=== PATIENT | female | born 1950 | race Caucasian/White ===

== ENCOUNTER 2022-07-31 21:38 | Inpatient (IN) | payer OTHER ==
[2022-07-31 21:44] VITALS: BMI 27.4
[2022-07-31 23:15] LABS: BASO % 0.5 % (0-2.0); EOS % 2.4 % (0-4.5); HEMATOCRIT 33.9 % (32.4-45.2); HEMOGLOBIN 11.4 GM/dL (10.7-15.3); LYMPH % 31.8 % (8-40); MCH 30.7 pg (25.7-33.7); MCHC 33.7 g/dl (32.0-36.0); MEAN PLT VOLUME 7.3 fl (7.5-11.1); MONO % 6.8 % (3.8-10.2); NEUT % 58.5 % (42.8-82.8); PLATELET COUNT 279 10^3/uL (134-434); RBC 3.72 M/mm3 (3.60-5.2); RDW 13.6 % (11.6-15.6)
[2022-07-31 23:20] LABS: INR 0.97 (0.83-1.09); PROTHROMBIN TIME (PATIENT) 11.2 SEC (9.7-13.0)
[2022-07-31 23:23] LABS: ACTIVATED PTT 28.9 SECONDS (25.2-36.5)
[2022-07-31 23:43] LABS: CALCIUM 9.3 mg/dL (8.5-10.1)
[2022-07-31 23:44] LABS: ALBUMIN 3.8 g/dl (3.4-5.0); BLOOD UREA NITROGEN 31.7 mg/dL (7-18); MAGNESIUM 2.2 mg/dL (1.8-2.4)
[2022-07-31 23:47] LABS: CREATININE 1.6 mg/dL (0.55-1.3)
[2022-07-31 23:49] LABS: BILIRUBIN,TOTAL 0.3 mg/dL (0.2-1); TOT PROT 7.7 g/dl (6.4-8.2)
[2022-07-31] MEDS ORDERED: morphine CARPU-JECT 4 MG/1 ML DISP.SYRIN IVPUSH ONE (23:57)
[2022-07-31] MEDS ORDERED: ONDANSETRON 4 MG/2 ML VIAL IVPUSH ONE (23:57)
[2022-08-01] MEDS ORDERED: morphine CARPU-JECT 4 MG/1 ML DISP.SYRIN IVPUSH ONE (00:02)
[2022-08-01] MEDS ORDERED: DEXTROSE 50%-WATER - 25 GM/50 ML VIAL IVPUSH ONE (01:56)
[2022-08-01] MEDS ORDERED: morphine SULFATE 4 MG/ML VIAL ONE (01:57)
[2022-08-01] MEDS ORDERED: ONDANSETRON 4 MG/2 ML VIAL ONE (01:58)
[2022-08-01] MEDS ORDERED: HEPARIN NA (PORCINE) 5,000 UNITS/ML 1ML VIAL IVPUSH ONE ×2 (02:09→03:45)
[2022-08-01] MEDS ORDERED: HEPARIN - 25,000 UNIT in SODIUM CHLORIDE 495 ML IV SCH (02:15)
[2022-08-01] MEDS ORDERED: DEXTROSE 50%-WATER 25 GM/50 ML DISP.SYRIN ONE (02:58)
[2022-08-01] MEDS ORDERED: HEPARIN NA (PORCINE) 5,000 UNITS/ML 1ML VIAL ONE ×2 (03:22→09:37)
[2022-08-01] MEDS ORDERED: ACETAMINOPHEN INJECTION 100 ML IVPB ONE (03:38)
[2022-08-01] MEDS ORDERED: SODIUM CHLORIDE 1,000 ML IV SCH (04:45)
[2022-08-01 06:34] LABS: HEMATOCRIT 33.3 % (32.4-45.2); HEMOGLOBIN 10.9 GM/dL (10.7-15.3); MCH 29.9 pg (25.7-33.7); MCHC 32.7 g/dl (32.0-36.0); MEAN CELL VOLUME 91.4 fl (80-96); MEAN PLT VOLUME 8.2 fl (7.5-11.1); PLATELET COUNT 283 10^3/uL (134-434); RBC 3.64 M/mm3 (3.60-5.2); RDW 13.2 % (11.6-15.6); WHITE BLOOD COUNT 8.7 K/mm3 (4.0-10.0)
[2022-08-01 07:37] LABS: BLOOD UREA NITROGEN 32.2 mg/dL (7-18); CALCIUM 8.7 mg/dL (8.5-10.1); CREATININE 1.6 mg/dL (0.55-1.3); MAGNESIUM 2.1 mg/dL (1.8-2.4); PHOSPHOROUS 4.5 mg/dL (2.5-4.9)
[2022-08-01] MEDS ORDERED: LIDOCAINE HCL 1%, 10 MG/ML (20ML VIAL) ONE (09:36)
[2022-08-01] MEDS ORDERED: GABAPENTIN 100 MG CAPSULE PO SCH (10:00)
[2022-08-01] MEDS ORDERED: FERROUS SO4 325 MG TABLET (FP) PO SCH (10:00)
[2022-08-01] MEDS ORDERED: amLODIPine BESYLATE 10 MG TABLET (FP) PO SCH (10:00)
[2022-08-01] MEDS ORDERED: SPIRONOLACTONE 25 MG TABLET PO SCH (10:00)
[2022-08-01] MEDS ORDERED: EZETIMIBE 10 MG TABLET (FP) PO SCH (10:00)
[2022-08-01] MEDS ORDERED: ISOSORBIDE MONONITRATE 30 MG TAB.SR.24H (FP) PO SCH (10:00)
[2022-08-01] MEDS ORDERED: LISINOPRIL 20 MG TABLET PO SCH (10:00)
[2022-08-01] MEDS ORDERED: HEPARIN NA (PORCINE) 5,000 UNITS/ML 1ML VIAL SQ ONE (10:24)
[2022-08-01] MEDS ORDERED: LIDOCAINE HCL 1%, 10 MG/ML (20ML VIAL) NR ONE (10:25)
[2022-08-01 15:15] VITALS: RESP 18
[2022-08-01] MEDS: FUROSEMIDE 20 MG TABLET (FP) PO SCH ×2 (15:36→22:01)
[2022-08-01] MEDS ORDERED: DEXTROSE 50%-WATER 25 GM/50 ML DISP.SYRIN IVPUSH PRN (20:19)
[2022-08-01] MEDS ORDERED: FAMOTIDINE 20 MG TABLET PO SCH (22:00)
[2022-08-01] MEDS ORDERED: ATORVASTATIN CA 80 MG TABLET (FP) PO SCH (22:00)
[2022-08-01] MEDS: INSULIN SLIDING SCALE (NOVOLOG) 1 VIAL SQ SCH (22:02)
[2022-08-01] MEDS ORDERED: ONDANSETRON 4 MG/2 ML VIAL IVPUSH ONE (23:56)
[2022-08-01] MEDS ORDERED: ACETAMINOPHEN 325 MG TABLET (FP) PO ONE (23:58)
[2022-08-02 06:44] VITALS: BP 141/61; PULSE 90; TEMP 99
[2022-08-02] MEDS: INSULIN SLIDING SCALE (NOVOLOG) 1 VIAL SQ SCH (07:03)
== END 2022-08-02 09:45 | disposition home or self-care (01) | DRG 301 ==
LOC: JER 21:38 → JERBED 22:16 → J5S 08-01 14:54
PROVIDERS: ADMIT Internal Medicine; ATTEND Surgery Vascular Surgery
DX: E11.51 Type 2 diabetes mellitus with diabetic peripheral angiopathy without gangrene (principal); E78.5 Hyperlipidemia, unspecified; E11.649 Type 2 diabetes mellitus with hypoglycemia without coma; I70.235 Atherosclerosis of native arteries of right leg with ulceration of other part of foot; Z85.3 Personal history of malignant neoplasm of breast; Z86.718 Personal history of other venous thrombosis and embolism; L97.519 Non-pressure chronic ulcer of other part of right foot with unspecified severity; L89.152 Pressure ulcer of sacral region, stage 2; Z88.0 Allergy status to penicillin; Z89.612 Acquired absence of left leg above knee
CPT/HCPCS: 36415; 71045-TC-FY; 73590-TC-RT-FY; 73630-TC-RT-FY; 73706-TC-RT; 80048; 80053; 82550; 82553; 82962; 83605; 83735; 84100; 84484; 85025; 85027; 85610; 85730; 86850; 86900; 86901; 93005; 93010; 99291; 99292; C9803-CS; J1644; Q9967; U0003; U0005

== ENCOUNTER 2022-08-02 16:49 | Inpatient (IN) | payer OTHER ==
[2022-08-02 16:55] VITALS: BMI 26.5
[2022-08-02] MEDS ORDERED: ePHEDrine SULFATE 50 MG/1 ML AMPULE ONE (18:06)
[2022-08-02] MEDS ORDERED: MIDAZOLAM HCL 2 MG/2 ML SINGLE DOSE VIAL ONE (18:07)
[2022-08-02] MEDS ORDERED: PROPOFOL 20 ML ONE (18:07)
[2022-08-02] MEDS ORDERED: ROCURONIUM BROMIDE 50 MG/5 ML SYRINGE ONE (18:07)
[2022-08-02] MEDS ORDERED: LIDOCAINE HCL 1%, 10 MG/ML (20ML VIAL) ONE (18:08)
[2022-08-02] MEDS ORDERED: HEPARIN NA (PORCINE) 5,000 UNITS/ML 1ML VIAL ONE ×2 (18:09→18:10)
[2022-08-02] MEDS ORDERED: PROTAMINE SULFATE 50 MG/5 ML VIAL ONE (18:10)
[2022-08-02] MEDS ORDERED: VANCOMYCIN 1,000 MG VIAL (RESTRICTED TO ID ONLY) ONE (18:11)
[2022-08-02] MEDS ORDERED: VANCOMYCIN 1,000 MG VIAL (RESTRICTED TO ID ONLY) IVPB ONE (18:30)
[2022-08-02] MEDS ORDERED: METOPROLOL TARTRATE 5 MG/5 ML VIAL ONE (18:43)
[2022-08-02] MEDS ORDERED: GENTAMICIN SO4 80 MG/2 ML VIAL ONE (19:14)
[2022-08-02] MEDS ORDERED: NEOSTIGMINE METHYLSULFATE 0.5 MG/ML - 10 ML MDV ONE (20:31)
[2022-08-02] MEDS ORDERED: POVIDONE-IODINE OINTMENT 10% - 28.4 GM TUBE TP ONE (20:40)
[2022-08-02] MEDS ORDERED: ONDANSETRON 4 MG/2 ML VIAL IVPUSH PRN ×2 (20:49→21:23)
[2022-08-02] MEDS ORDERED: LACTATED RINGERS SOLUTION 1,000 ML IV SCH (21:00)
[2022-08-02] MEDS ORDERED: ONDANSETRON 4 MG/2 ML VIAL ONE (21:17)
[2022-08-02] MEDS: LACTATED RINGERS SOLUTION 1,000 ML IV SCH (21:23)
[2022-08-02] MEDS ORDERED: HEPARIN INFUSION - 25,000 UNITS/500 ML INFUS.BAG IVPB SCH (21:23)
[2022-08-02] MEDS ORDERED: DOCUSATE SODIUM 100 MG CAPSULE (FP) PO PRN (21:23)
[2022-08-02] MEDS ORDERED: oxyCODONE HCL 5 MG TABLET PO PRN ×2 (21:23)
[2022-08-02] MEDS ORDERED: CHLORHEXIDINE GLUCONATE 4% CLEANSER FOR DECOLONIZATION TP SCH (22:00)
[2022-08-02] MEDS ORDERED: MUPIROCIN 2% TOPICAL OINTMENT FOR DECOLONIZATION NS SCH (22:00)
[2022-08-02 22:02] LABS: HEMATOCRIT 27.2 % (32.4-45.2); HEMOGLOBIN 8.8 GM/dL (10.7-15.3); MCHC 32.3 g/dl (32.0-36.0); MEAN CELL VOLUME 92.9 fl (80-96); MEAN PLT VOLUME 8.1 fl (7.5-11.1); PLATELET COUNT 242 10^3/uL (134-434); RBC 2.93 M/mm3 (3.60-5.2); RDW 13.6 % (11.6-15.6)
[2022-08-02] MEDS: ACETAMINOPHEN 1000 MG/100 ML BAG IVPB SCH (22:05)
[2022-08-03] MEDS: ACETAMINOPHEN 1000 MG/100 ML BAG IVPB SCH ×4 (04:06→21:30)
[2022-08-03 07:38] LABS: BASO % 0.5 % (0-2.0); EOS % 0.1 % (0-4.5); HEMATOCRIT 23.5 % (32.4-45.2); HEMOGLOBIN 8.1 GM/dL (10.7-15.3); LYMPH % 15.5 % (8-40); MCH 31.5 pg (25.7-33.7); MCHC 34.4 g/dl (32.0-36.0); MEAN CELL VOLUME 91.5 fl (80-96); MONO % 5.5 % (3.8-10.2); NEUT % 78.4 % (42.8-82.8); PLATELET COUNT 198 10^3/uL (134-434); RBC 2.57 M/mm3 (3.60-5.2); RDW 13.8 % (11.6-15.6); WHITE BLOOD COUNT 10.7 K/mm3 (4.0-10.0)
[2022-08-03 07:58] LABS: INR 1.04 (0.83-1.09)
[2022-08-03 08:00] LABS: ACTIVATED PTT 34.5 SECONDS (25.2-36.5)
[2022-08-03 08:13] LABS: CALCIUM 8.5 mg/dL (8.5-10.1)
[2022-08-03 08:14] LABS: BLOOD UREA NITROGEN 27.5 mg/dL (7-18)
[2022-08-03 08:15] LABS: CREATININE 1.4 mg/dL (0.55-1.3)
[2022-08-03 08:17] LABS: BILIRUBIN,TOTAL 0.4 mg/dL (0.2-1); PHOSPHOROUS 4.3 mg/dL (2.5-4.9); TOT PROT 5.7 g/dl (6.4-8.2)
[2022-08-03] MEDS: INSULIN SLIDING SCALE (NOVOLOG) 1 VIAL SQ SCH ×3 (08:19→17:25)
[2022-08-03 08:21] LABS: ALBUMIN 2.9 g/dl (3.4-5.0)
[2022-08-03] MEDS: LACTATED RINGERS SOLUTION 1,000 ML IV SCH ×2 (09:27→22:31)
[2022-08-03] MEDS: MUPIROCIN 2% TOPICAL OINTMENT FOR DECOLONIZATION NS SCH ×2 (09:30→22:31)
[2022-08-03] MEDS: FUROSEMIDE 20 MG TABLET (FP) PO SCH ×2 (09:30→22:31)
[2022-08-03] MEDS ORDERED: amLODIPine BESYLATE 10 MG TABLET (FP) PO SCH (10:00)
[2022-08-03] MEDS ORDERED: EZETIMIBE 10 MG TABLET (FP) PO SCH (10:00)
[2022-08-03] MEDS ORDERED: SPIRONOLACTONE 25 MG TABLET PO SCH (10:00)
[2022-08-03] MEDS ORDERED: GABAPENTIN 100 MG CAPSULE PO SCH (10:00)
[2022-08-03] MEDS ORDERED: LISINOPRIL 20 MG TABLET PO SCH (10:00)
[2022-08-03] MEDS ORDERED: NICOTINE 14 MG/24 HOURS TOPICAL PATCH TD SCH (10:00)
[2022-08-03] MEDS ORDERED: ISOSORBIDE MONONITRATE 30 MG TAB.SR.24H (FP) PO SCH (10:00)
[2022-08-03] MEDS ORDERED: FERROUS SO4 325 MG TABLET (FP) PO SCH (10:00)
[2022-08-03] MEDS ORDERED: CLOPIDOGREL BISULFATE 75 MG TABLET (FP) PO SCH (10:00)
[2022-08-03] MEDS: APIXABAN 5 MG TABLET PO SCH ×2 (12:10→22:31)
[2022-08-03] MEDS ORDERED: VANCOMYCIN/WATER FOR INJ (PEG) 1,000 MG/200 ML BAG IVPB ONE (18:30)
[2022-08-03] MEDS ORDERED: VANCOMYCIN 1,000 MG in DEXTROSE 5%-WATER - 250 ML IVPB ONE (18:30)
[2022-08-03] MEDS ORDERED: IBUPROFEN 800 MG/8 ML IJ IVPB ONE (19:03)
[2022-08-03] MEDS ORDERED: FAMOTIDINE 20 MG TABLET PO SCH (22:00)
[2022-08-03] MEDS ORDERED: ATORVASTATIN CA 80 MG TABLET (FP) PO SCH (22:00)
[2022-08-04] MEDS ORDERED: DOCUSATE SODIUM 100 MG CAPSULE (FP) PO PRN (08:33)
[2022-08-04] MEDS: EZETIMIBE 10 MG TABLET (FP) PO SCH (09:44)
[2022-08-04] MEDS: FUROSEMIDE 20 MG TABLET (FP) PO SCH ×2 (09:44→21:13)
[2022-08-04] MEDS: oxyCODONE HCL 5 MG TABLET PO PRN ×3 (09:44→19:17)
[2022-08-04] MEDS: ISOSORBIDE MONONITRATE 30 MG TAB.SR.24H (FP) PO SCH (09:44)
[2022-08-04] MEDS: amLODIPine BESYLATE 10 MG TABLET (FP) PO SCH (09:45)
[2022-08-04] MEDS: GABAPENTIN 100 MG CAPSULE PO SCH (09:45)
[2022-08-04] MEDS: NICOTINE 14 MG/24 HOURS TOPICAL PATCH TD SCH (09:45)
[2022-08-04] MEDS: APIXABAN 5 MG TABLET PO SCH ×2 (09:45→21:13)
[2022-08-04] MEDS: SPIRONOLACTONE 25 MG TABLET PO SCH (09:45)
[2022-08-04] MEDS: FERROUS SO4 325 MG TABLET (FP) PO SCH (09:45)
[2022-08-04] MEDS: CLOPIDOGREL BISULFATE 75 MG TABLET (FP) PO SCH (09:45)
[2022-08-04] MEDS: LACTATED RINGERS SOLUTION 1,000 ML IV SCH ×2 (09:46→23:47)
[2022-08-04] MEDS: LISINOPRIL 20 MG TABLET PO SCH (10:43)
[2022-08-04] MEDS ORDERED: INSULIN (NOVOLOG) ASPART 100 UNITS/ML 10ML VIAL ONE (11:42)
[2022-08-04] MEDS: INSULIN SLIDING SCALE (NOVOLOG) 1 VIAL SQ SCH ×2 (11:46→17:16)
[2022-08-04 12:22] LABS: BASO % 0.4 % (0-2.0); HEMATOCRIT 23.8 % (32.4-45.2); HEMOGLOBIN 7.9 GM/dL (10.7-15.3); LYMPH % 12.1 % (8-40); MCH 30.3 pg (25.7-33.7); MEAN CELL VOLUME 91.7 fl (80-96); MEAN PLT VOLUME 8.7 fl (7.5-11.1); MONO % 5.9 % (3.8-10.2); NEUT % 80.6 % (42.8-82.8); PLATELET COUNT 189 10^3/uL (134-434); RDW 13.6 % (11.6-15.6); WHITE BLOOD COUNT 10.3 K/mm3 (4.0-10.0)
[2022-08-04 12:44] LABS: ALBUMIN 2.8 g/dl (3.4-5.0); BLOOD UREA NITROGEN 23.7 mg/dL (7-18); CALCIUM 8.7 mg/dL (8.5-10.1)
[2022-08-04 12:46] LABS: CREATININE 1.3 mg/dL (0.55-1.3)
[2022-08-04 12:48] LABS: BILIRUBIN,TOTAL 0.3 mg/dL (0.2-1); TOT PROT 5.8 g/dl (6.4-8.2)
[2022-08-04] MEDS: ATORVASTATIN CA 80 MG TABLET (FP) PO SCH (21:13)
[2022-08-04] MEDS: FAMOTIDINE 10 MG TABLET PO SCH (21:13)
[2022-08-05] MEDS: oxyCODONE HCL 5 MG TABLET PO PRN ×4 (03:18→20:48)
[2022-08-05] MEDS: INSULIN SLIDING SCALE (NOVOLOG) 1 VIAL SQ SCH ×4 (05:09→16:42)
[2022-08-05] MEDS ORDERED: INSULIN (NOVOLOG) ASPART 100 UNITS/ML 10ML VIAL ONE (05:11)
[2022-08-05 09:29] LABS: BASO % 0.4 % (0-2.0); EOS % 1.3 % (0-4.5); HEMOGLOBIN 7.4 GM/dL (10.7-15.3); LYMPH % 14.1 % (8-40); MCH 30.4 pg (25.7-33.7); MCHC 33.7 g/dl (32.0-36.0); MEAN CELL VOLUME 90.4 fl (80-96); MEAN PLT VOLUME 8.3 fl (7.5-11.1); MONO % 6.9 % (3.8-10.2); NEUT % 77.3 % (42.8-82.8); PLATELET COUNT 194 10^3/uL (134-434); RBC 2.43 M/mm3 (3.60-5.2); RDW 13.4 % (11.6-15.6); WHITE BLOOD COUNT 9.9 K/mm3 (4.0-10.0)
[2022-08-05] MEDS: LACTATED RINGERS SOLUTION 1,000 ML IV SCH ×2 (09:37→17:56)
[2022-08-05] MEDS: GABAPENTIN 100 MG CAPSULE PO SCH (09:38)
[2022-08-05] MEDS: FUROSEMIDE 20 MG TABLET (FP) PO SCH ×2 (09:38→21:18)
[2022-08-05] MEDS: EZETIMIBE 10 MG TABLET (FP) PO SCH (09:38)
[2022-08-05] MEDS: ISOSORBIDE MONONITRATE 30 MG TAB.SR.24H (FP) PO SCH (09:38)
[2022-08-05] MEDS: CLOPIDOGREL BISULFATE 75 MG TABLET (FP) PO SCH (09:38)
[2022-08-05] MEDS: amLODIPine BESYLATE 10 MG TABLET (FP) PO SCH (09:38)
[2022-08-05] MEDS: FERROUS SO4 325 MG TABLET (FP) PO SCH (09:39)
[2022-08-05] MEDS: LISINOPRIL 20 MG TABLET PO SCH (09:39)
[2022-08-05] MEDS: APIXABAN 5 MG TABLET PO SCH ×2 (09:39→21:18)
[2022-08-05] MEDS: SPIRONOLACTONE 25 MG TABLET PO SCH (09:39)
[2022-08-05] MEDS: NICOTINE 14 MG/24 HOURS TOPICAL PATCH TD SCH (09:40)
[2022-08-05 09:45] LABS: CALCIUM 8.8 mg/dL (8.5-10.1)
[2022-08-05 09:46] LABS: BLOOD UREA NITROGEN 21.2 mg/dL (7-18)
[2022-08-05 09:49] LABS: CREATININE 1.3 mg/dL (0.55-1.3)
[2022-08-05] MEDS ORDERED: TRIMETHOBENZAMIDE HCL 200MG/2ML INJ IM PRN (18:04)
[2022-08-05] MEDS: FAMOTIDINE 10 MG TABLET PO SCH (21:18)
[2022-08-05] MEDS: MELATONIN 5 MG TABLETS PO SCH (21:19)
[2022-08-05] MEDS: ATORVASTATIN CA 80 MG TABLET (FP) PO SCH (21:19)
[2022-08-06] MEDS: oxyCODONE HCL 5 MG TABLET PO PRN ×2 (03:19→09:38)
[2022-08-06] MEDS: LACTATED RINGERS SOLUTION 1,000 ML IV SCH ×2 (05:32→11:01)
[2022-08-06] MEDS: INSULIN SLIDING SCALE (NOVOLOG) 1 VIAL SQ SCH ×3 (06:13→16:57)
[2022-08-06] MEDS ORDERED: INSULIN (NOVOLOG) ASPART 100 UNITS/ML 10ML VIAL ONE (06:24)
[2022-08-06] MEDS: ISOSORBIDE MONONITRATE 30 MG TAB.SR.24H (FP) PO SCH (09:39)
[2022-08-06] MEDS: SPIRONOLACTONE 25 MG TABLET PO SCH (09:39)
[2022-08-06] MEDS: EZETIMIBE 10 MG TABLET (FP) PO SCH (09:39)
[2022-08-06] MEDS: LISINOPRIL 20 MG TABLET PO SCH (09:40)
[2022-08-06] MEDS: FERROUS SO4 325 MG TABLET (FP) PO SCH (09:40)
[2022-08-06] MEDS: APIXABAN 5 MG TABLET PO SCH ×2 (09:40→22:13)
[2022-08-06] MEDS: GABAPENTIN 100 MG CAPSULE PO SCH (09:40)
[2022-08-06] MEDS: amLODIPine BESYLATE 10 MG TABLET (FP) PO SCH (09:40)
[2022-08-06] MEDS: FUROSEMIDE 20 MG TABLET (FP) PO SCH ×2 (09:40→22:12)
[2022-08-06] MEDS: NICOTINE 14 MG/24 HOURS TOPICAL PATCH TD SCH ×2 (09:40→11:00)
[2022-08-06] MEDS: CLOPIDOGREL BISULFATE 75 MG TABLET (FP) PO SCH (09:51)
[2022-08-06 10:42] LABS: BASO % 0.6 % (0-2.0); EOS % 2.4 % (0-4.5); HEMATOCRIT 23.2 % (32.4-45.2); HEMOGLOBIN 7.7 GM/dL (10.7-15.3); LYMPH % 15.4 % (8-40); MCH 30.2 pg (25.7-33.7); MEAN CELL VOLUME 91.7 fl (80-96); MEAN PLT VOLUME 8.7 fl (7.5-11.1); NEUT % 74.6 % (42.8-82.8); PLATELET COUNT 201 10^3/uL (134-434); RBC 2.53 M/mm3 (3.60-5.2); RDW 13.5 % (11.6-15.6); WHITE BLOOD COUNT 8.8 K/mm3 (4.0-10.0)
[2022-08-06 11:58] LABS: ALBUMIN 2.8 g/dl (3.4-5.0); BLOOD UREA NITROGEN 17.5 mg/dL (7-18); CALCIUM 9.2 mg/dL (8.5-10.1); MAGNESIUM 1.5 mg/dL (1.8-2.4)
[2022-08-06 12:01] LABS: PHOSPHOROUS 3.1 mg/dL (2.5-4.9)
[2022-08-06 12:04] LABS: CREATININE 1.2 mg/dL (0.55-1.3)
[2022-08-06 12:06] LABS: BILIRUBIN,TOTAL 0.4 mg/dL (0.2-1)
[2022-08-06] MEDS: MELATONIN 5 MG TABLETS PO SCH (22:12)
[2022-08-06] MEDS: ATORVASTATIN CA 80 MG TABLET (FP) PO SCH (22:13)
[2022-08-06] MEDS: FAMOTIDINE 10 MG TABLET PO SCH (22:13)
[2022-08-06 23:13] VITALS: RESP 18
[2022-08-07] MEDS: LACTATED RINGERS SOLUTION 1,000 ML IV SCH ×2 (06:09→10:22)
[2022-08-07] MEDS: INSULIN SLIDING SCALE (NOVOLOG) 1 VIAL SQ SCH ×3 (06:13→16:44)
[2022-08-07] MEDS: oxyCODONE HCL 5 MG TABLET PO PRN ×2 (06:57→10:27)
[2022-08-07] MEDS: LISINOPRIL 20 MG TABLET PO SCH (09:15)
[2022-08-07] MEDS: amLODIPine BESYLATE 10 MG TABLET (FP) PO SCH (09:15)
[2022-08-07] MEDS: FERROUS SO4 325 MG TABLET (FP) PO SCH (09:15)
[2022-08-07] MEDS: EZETIMIBE 10 MG TABLET (FP) PO SCH (09:15)
[2022-08-07] MEDS: ISOSORBIDE MONONITRATE 30 MG TAB.SR.24H (FP) PO SCH (09:15)
[2022-08-07] MEDS: CLOPIDOGREL BISULFATE 75 MG TABLET (FP) PO SCH (09:15)
[2022-08-07] MEDS: FUROSEMIDE 20 MG TABLET (FP) PO SCH (09:15)
[2022-08-07] MEDS: GABAPENTIN 100 MG CAPSULE PO SCH (09:15)
[2022-08-07] MEDS: SPIRONOLACTONE 25 MG TABLET PO SCH (09:15)
[2022-08-07 09:57] LABS: BASO % 0.3 % (0-2.0); EOS % 2.4 % (0-4.5); HEMATOCRIT 21.4 % (32.4-45.2); HEMOGLOBIN 7.5 GM/dL (10.7-15.3); LYMPH % 13.4 % (8-40); MCH 31.5 pg (25.7-33.7); MCHC 34.9 g/dl (32.0-36.0); MEAN CELL VOLUME 90.2 fl (80-96); MEAN PLT VOLUME 8.2 fl (7.5-11.1); MONO % 7.3 % (3.8-10.2); NEUT % 76.6 % (42.8-82.8); PLATELET COUNT 208 10^3/uL (134-434); RBC 2.37 M/mm3 (3.60-5.2); RDW 13.5 % (11.6-15.6); WHITE BLOOD COUNT 7.7 K/mm3 (4.0-10.0)
[2022-08-07] MEDS: NICOTINE 14 MG/24 HOURS TOPICAL PATCH TD SCH (10:12)
[2022-08-07 11:22] LABS: CALCIUM 8.5 mg/dL (8.5-10.1)
[2022-08-07 11:23] LABS: ALBUMIN 2.6 g/dl (3.4-5.0); BLOOD UREA NITROGEN 16.1 mg/dL (7-18); MAGNESIUM 1.2 mg/dL (1.8-2.4)
[2022-08-07 11:26] LABS: CREATININE 1.2 mg/dL (0.55-1.3); PHOSPHOROUS 3.1 mg/dL (2.5-4.9)
[2022-08-07 11:27] LABS: BILIRUBIN,TOTAL 0.4 mg/dL (0.2-1)
[2022-08-07] MEDS: APIXABAN 5 MG TABLET PO SCH (11:30)
[2022-08-07] MEDS ORDERED: INSULIN (NOVOLOG) ASPART 100 UNITS/ML 10ML VIAL ONE (11:43)
[2022-08-07 14:25] VITALS: BP 118/54; PULSE 99; TEMP 99.5
== END 2022-08-07 19:03 | disposition home health service (06) | DRG 253 ==
LOC: JER 16:49 → JERBED 18:38 → JICU 23:31 → J6S 08-04 06:28
PROVIDERS: ADMIT Internal Medicine; ATTEND Internal Medicine
PROC: 047P3ZZ Dilation of Right Anterior Tibial Artery, Percutaneous Approach (ICD-10-PCS; principal; 2022-08-02 19:00)
PROC: 04CM0ZZ Extirpation of Matter from Right Popliteal Artery, Open Approach (ICD-10-PCS; 2022-08-02 19:00)
DX: I97.89 Other postprocedural complications and disorders of the circulatory system, not elsewhere classified (principal); I13.0 Hypertensive heart and chronic kidney disease with heart failure and stage 1 through stage 4 chronic kidney disease, or unspecified chronic kidney disease; N18.9 Chronic kidney disease, unspecified; I73.9 Peripheral vascular disease, unspecified; E11.9 Type 2 diabetes mellitus without complications; Z89.512 Acquired absence of left leg below knee; E78.5 Hyperlipidemia, unspecified; Y83.9 Surgical procedure, unspecified as the cause of abnormal reaction of the patient, or of later complication, without mention of misadventure at the time of the procedure
CPT/HCPCS: 36415; 71046-TC-FY; 76000-TC-FY; 76775-TC; 80048; 80053; 82570; 82962; 83605; 83735; 83970; 84100; 84156; 84300; 85025; 85027; 85610; 85730; 86850; 86900; 86901; 93926-TC; 94010; 94760; 97116-GP; 97162-GP; 99285-25; C1757; C1769; J1644

== ENCOUNTER 2022-09-13 15:49 | Inpatient (IN) | payer OTHER ==
[2022-09-13] MEDS ORDERED: CEFEPIME HCL/D5W 2 GM/50 ML BAG IVPB ONE (17:35)
[2022-09-13] MEDS ORDERED: VANCOMYCIN 1 GM in D5W (PRE-DOCKED) 1,000 MG/250 ML IVPB ONE (17:35)
[2022-09-13] MEDS ORDERED: VANCOMYCIN/WATER FOR INJ (PEG) 1,000 MG/200 ML BAG IVPB ONE (18:14)
[2022-09-13] MEDS ORDERED: CEFEPIME 2 GM/100 ML BAG IVPB ONE (18:14)
[2022-09-13 18:22] LABS: BASO % 0.7 % (0-2.0); EOS % 0.5 % (0-4.5); HEMATOCRIT 29.4 % (32.4-45.2); HEMOGLOBIN 9.5 GM/dL (10.7-15.3); MCH 29.2 pg (25.7-33.7); MCHC 32.5 g/dl (32.0-36.0); MEAN PLT VOLUME 7.8 fl (7.5-11.1); MONO % 5.8 % (3.8-10.2); PLATELET COUNT 405 10^3/uL (134-434); RBC 3.26 M/mm3 (3.60-5.2); RDW 16.4 % (11.6-15.6); WHITE BLOOD COUNT 10.8 K/mm3 (4.0-10.0)
[2022-09-13 18:34] LABS: INR 1.08 (0.83-1.09); PROTHROMBIN TIME (PATIENT) 12.4 SEC (9.7-13.0)
[2022-09-13 18:36] LABS: ACTIVATED PTT 30.3 SECONDS (25.2-36.5)
[2022-09-13 18:49] LABS: CALCIUM 9.7 mg/dL (8.5-10.1)
[2022-09-13 18:50] LABS: BLOOD UREA NITROGEN 18.4 mg/dL (7-18)
[2022-09-13 18:53] LABS: CREATININE 1.4 mg/dL (0.55-1.3)
[2022-09-13 18:54] LABS: TOT PROT 7.2 g/dl (6.4-8.2)
[2022-09-13 18:55] LABS: BILIRUBIN,TOTAL 0.2 mg/dL (0.2-1)
[2022-09-14] MEDS ORDERED: ACETAMINOPHEN 1000 MG/100 ML BAG IVPB ONE (03:50)
[2022-09-14] MEDS ORDERED: ACETAMINOPHEN INJECTION 100 ML IVPB ONE (03:52)
[2022-09-14] MEDS ORDERED: VANCOMYCIN 1 GM in D5W (PRE-DOCKED) 1,000 MG/250 ML IVPB ONE (04:18)
[2022-09-14] MEDS ORDERED: VANCOMYCIN 750 MG in DEXTROSE 5%-WATER - 150 ML IVPB SCH (04:45)
[2022-09-14 08:21] VITALS: RESP 18
[2022-09-14] MEDS: INSULIN (LEVEMIR) 100 UNITS/ML UNITS SQ SCH ×2 (08:47→16:39)
[2022-09-14] MEDS: INSULIN SLIDING SCALE (NOVOLOG) 1 VIAL SQ SCH ×3 (08:48→16:37)
[2022-09-14] MEDS ORDERED: LISINOPRIL 20 MG TABLET ONE (09:41)
[2022-09-14] MEDS ORDERED: METOPROLOL TARTRATE 50 MG TABLET (FP) ONE (09:42)
[2022-09-14] MEDS ORDERED: SPIRONOLACTONE 25 MG TABLET ONE (09:42)
[2022-09-14] MEDS ORDERED: QUEtiapine FUMARATE 25 MG TABLET ONE (09:42)
[2022-09-14] MEDS ORDERED: amLODIPine BESYLATE 10 MG TABLET (FP) ONE (09:42)
[2022-09-14 09:48] LABS: URINE APPEARANCE CLEAR; URINE BILIRUBIN NEGATIVE (NEGATIVE); URINE COLOR YELLOW; URINE GLUCOSE (UA) 3+ (NEGATIVE)
[2022-09-14 09:49] LABS: EPI CELLS 19 /uL (0-25.1); HYALINE CASTS 1 /uL (0-3.1); PH,URINE 5.5 (5.0-8.0); URINE BACTERIA 2 /uL (0-1359); URINE KETONE NEGATIVE (NEGATIVE); URINE LEUK ESTERASE NEGATIVE (NEGATIVE); URINE NITRITE NEGATIVE (NEGATIVE); URINE PROTEIN 2+ (NEGATIVE); URINE RBC 13 /uL (0-23.9); URINE UROBILINOGEN 0.2 mg/dL (0.2-1.0); URINE WBC 33 /uL (0-25.8)
[2022-09-14] MEDS ORDERED: SPIRONOLACTONE 25 MG TABLET PO SCH (10:00)
[2022-09-14] MEDS ORDERED: EZETIMIBE 10 MG TABLET (FP) PO SCH (10:00)
[2022-09-14] MEDS ORDERED: QUEtiapine FUMARATE 25 MG TABLET PO SCH (10:00)
[2022-09-14] MEDS ORDERED: METOPROLOL TARTRATE 50 MG TABLET (FP) PO SCH (10:00)
[2022-09-14] MEDS ORDERED: LISINOPRIL 20 MG TABLET PO SCH (10:00)
[2022-09-14] MEDS ORDERED: amLODIPine BESYLATE 10 MG TABLET (FP) PO SCH (10:00)
[2022-09-14 10:06] LABS: YEAST FEW (NEGATIVE)
[2022-09-14 10:10] VITALS: BMI 25.3
[2022-09-14 11:26] LABS: BASO % 0.7 % (0-2.0); EOS % 1.4 % (0-4.5); HEMATOCRIT 25.5 % (32.4-45.2); HEMOGLOBIN 8.3 GM/dL (10.7-15.3); LYMPH % 24.4 % (8-40); MCH 29.4 pg (25.7-33.7); MCHC 32.7 g/dl (32.0-36.0); MEAN PLT VOLUME 7.7 fl (7.5-11.1); MONO % 8.2 % (3.8-10.2); NEUT % 65.3 % (42.8-82.8); PLATELET COUNT 333 10^3/uL (134-434); RBC 2.84 M/mm3 (3.60-5.2); RDW 16.2 % (11.6-15.6); WHITE BLOOD COUNT 6.8 K/mm3 (4.0-10.0)
[2022-09-14 11:43] LABS: ALBUMIN 2.5 g/dl (3.4-5.0); CALCIUM 9.4 mg/dL (8.5-10.1); MAGNESIUM 2.1 mg/dL (1.8-2.4)
[2022-09-14 11:46] LABS: CREATININE 1.4 mg/dL (0.55-1.3); PHOSPHOROUS 2.2 mg/dL (2.5-4.9)
[2022-09-14 11:48] LABS: BILIRUBIN,TOTAL 0.2 mg/dL (0.2-1); TOT PROT 6.3 g/dl (6.4-8.2)
[2022-09-14 16:49] VITALS: BP 118/54; PULSE 60; TEMP 98.8
[2022-09-14] MEDS ORDERED: VANCOMYCIN/WATER FOR INJ (PEG) 750 MG/150 ML BAG IVPB SCH (18:00)
[2022-09-14] MEDS ORDERED: ATORVASTATIN CA 80 MG TABLET (FP) PO SCH (22:00)
[2022-09-14] MEDS ORDERED: FAMOTIDINE 20 MG TABLET PO SCH (22:00)
== END 2022-09-14 19:06 | disposition home or self-care (01) | DRG 300 ==
LOC: JER 15:49 → JERBED 20:58
PROVIDERS: ADMIT Internal Medicine; ATTEND Internal Medicine
DX: E11.52 Type 2 diabetes mellitus with diabetic peripheral angiopathy with gangrene (principal); I96 Gangrene, not elsewhere classified; E78.5 Hyperlipidemia, unspecified; F17.210 Nicotine dependence, cigarettes, uncomplicated; D64.9 Anemia, unspecified; I11.0 Hypertensive heart disease with heart failure; I50.9 Heart failure, unspecified; M79.676 Pain in unspecified toe(s); Z89.612 Acquired absence of left leg above knee; Z85.3 Personal history of malignant neoplasm of breast; Z86.718 Personal history of other venous thrombosis and embolism
CPT/HCPCS: 36415; 75635-TC; 80053; 81003; 82962; 83735; 84100; 85025; 85610; 85730; 86850; 86900; 86901; 87040; 87070; 87205; 93005; 93010; 93971-TC; 99285-25; C9803-CS; Q9967; U0003; U0005

== ENCOUNTER 2022-10-01 12:24 | Inpatient (IN) | payer OTHER ==
[2022-10-01] MEDS ORDERED: CEFAZOLIN 1 GM in DEXTROSE 5%-WATER - 50 ML IVPB ONE (13:48)
[2022-10-01] MEDS ORDERED: ceFAZolin SODIUM 1 GM VIAL ONE (14:07)
[2022-10-01 14:20] LABS: BASO % 0.3 % (0-2.0); EOS % 4.2 % (0-4.5); HEMATOCRIT 27.9 % (32.4-45.2); MCH 29.4 pg (25.7-33.7); MCHC 32.2 g/dl (32.0-36.0); MEAN CELL VOLUME 91.4 fl (80-96); MEAN PLT VOLUME 7.9 fl (7.5-11.1); MONO % 3.9 % (3.8-10.2); NEUT % 77.6 % (42.8-82.8); PLATELET COUNT 269 10^3/uL (134-434); RBC 3.05 M/mm3 (3.60-5.2); RDW 17.6 % (11.6-15.6); WHITE BLOOD COUNT 9.1 K/mm3 (4.0-10.0)
[2022-10-01 14:27] LABS: INR 1.3 (0.83-1.09)
[2022-10-01 14:29] LABS: ACTIVATED PTT 31.6 SECONDS (25.2-36.5)
[2022-10-01 14:40] LABS: ALBUMIN 3.1 g/dl (3.4-5.0); CALCIUM 9.3 mg/dL (8.5-10.1)
[2022-10-01 14:41] LABS: BLOOD UREA NITROGEN 20.1 mg/dL (7-18)
[2022-10-01 14:43] LABS: CREATININE 1.2 mg/dL (0.55-1.3)
[2022-10-01 14:45] LABS: BILIRUBIN,TOTAL 0.3 mg/dL (0.2-1); TOT PROT 6.7 g/dl (6.4-8.2)
[2022-10-01 14:56] LABS: ERYTHROCYTE SEDIMENTATION RATE 105 mm/hr (0-30)
[2022-10-01] MEDS ORDERED: DOCUSATE SODIUM 100 MG CAPSULE (FP) PO PRN (15:31)
[2022-10-01] MEDS ORDERED: ACETAMINOPHEN 325 MG TABLET (FP) PO PRN (15:33)
[2022-10-01] MEDS ORDERED: QUEtiapine FUMARATE 25 MG TABLET ONE (21:16)
[2022-10-01] MEDS ORDERED: ATORVASTATIN CA 80 MG TABLET (FP) ONE (21:16)
[2022-10-01] MEDS ORDERED: HEPARIN NA (PORCINE) 5,000 UNITS/ML 1ML VIAL ONE (21:16)
[2022-10-01] MEDS ORDERED: METOPROLOL TARTRATE 50 MG TABLET (FP) ONE (21:16)
[2022-10-01] MEDS: METOPROLOL TARTRATE 50 MG TABLET (FP) PO SCH (21:51)
[2022-10-01] MEDS: ATORVASTATIN CA 80 MG TABLET (FP) PO SCH (21:51)
[2022-10-01] MEDS: QUEtiapine FUMARATE 25 MG TABLET PO SCH (21:51)
[2022-10-01] MEDS: INSULIN (LEVEMIR) 100 UNITS/ML UNITS SQ SCH (21:51)
[2022-10-01] MEDS: HEPARIN NA (PORCINE) 5,000 UNITS/ML 1ML VIAL SQ SCH (21:55)
[2022-10-02] MEDS ORDERED: MELATONIN 5 MG TABLETS PO ONE ×2 (00:07→19:41)
[2022-10-02 06:28] VITALS: BMI 22.6
[2022-10-02] MEDS ORDERED: POTASSIUM CHLORIDE ORAL LIQUID 20 MEQ/15 ML PO ONE (07:40)
[2022-10-02] MEDS: INSULIN (LEVEMIR) 100 UNITS/ML UNITS SQ SCH ×2 (08:35→22:12)
[2022-10-02] MEDS: SPIRONOLACTONE 25 MG TABLET PO SCH (09:43)
[2022-10-02] MEDS: METOPROLOL TARTRATE 50 MG TABLET (FP) PO SCH ×2 (09:43→22:10)
[2022-10-02] MEDS: CEFTRIAXONE 1 GM in DEXTROSE 5%-WATER - 50 ML IVPB SCH (09:43)
[2022-10-02] MEDS: amLODIPine BESYLATE 10 MG TABLET (FP) PO SCH (09:43)
[2022-10-02] MEDS: FAMOTIDINE 10 MG TABLET PO SCH (09:43)
[2022-10-02] MEDS: LISINOPRIL 20 MG TABLET PO SCH (09:43)
[2022-10-02] MEDS: EZETIMIBE 10 MG TABLET (FP) PO SCH (09:43)
[2022-10-02] MEDS: HEPARIN NA (PORCINE) 5,000 UNITS/ML 1ML VIAL SQ SCH (09:43)
[2022-10-02 10:17] LABS: BLOOD UREA NITROGEN 17.8 mg/dL (7-18); CALCIUM 9.3 mg/dL (8.5-10.1); MAGNESIUM 1.9 mg/dL (1.8-2.4)
[2022-10-02] MEDS: oxyCODONE HCL 5 MG TABLET PO PRN ×2 (14:45→22:10)
[2022-10-02] MEDS ORDERED: HEPARIN NA (PORCINE) 5,000 UNITS/ML 1ML VIAL IVPUSH PRN (16:35)
[2022-10-02] MEDS ORDERED: HEPARIN INFUSION - 25,000 UNITS/500 ML INFUS.BAG IVPB SCH (16:45)
[2022-10-02] MEDS ORDERED: ACETAMINOPHEN 1000 MG/100 ML BAG IVPB ONE (18:11)
[2022-10-02] MEDS ORDERED: POTASSIUM CHLORIDE TABS 20 MEQ TABLET.ER (FP) PO ONE (22:00)
[2022-10-02] MEDS: QUEtiapine FUMARATE 25 MG TABLET PO SCH (22:12)
[2022-10-02] MEDS: ATORVASTATIN CA 80 MG TABLET (FP) PO SCH (22:12)
[2022-10-03 09:30] LABS: HEMATOCRIT 26.9 % (32.4-45.2); HEMOGLOBIN 8.6 GM/dL (10.7-15.3); MCH 29.2 pg (25.7-33.7); MCHC 31.8 g/dl (32.0-36.0); MEAN CELL VOLUME 91.8 fl (80-96); MEAN PLT VOLUME 8.1 fl (7.5-11.1); PLATELET COUNT 219 10^3/uL (134-434); RBC 2.93 M/mm3 (3.60-5.2); RDW 17.2 % (11.6-15.6); WHITE BLOOD COUNT 5.7 K/mm3 (4.0-10.0)
[2022-10-03 09:35] LABS: INR 1.09 (0.83-1.09); PROTHROMBIN TIME (PATIENT) 12.6 SEC (9.7-13.0)
[2022-10-03 09:50] LABS: ALBUMIN 2.7 g/dl (3.4-5.0); BLOOD UREA NITROGEN 16.3 mg/dL (7-18); CALCIUM 9.6 mg/dL (8.5-10.1)
[2022-10-03 09:51] LABS: MAGNESIUM 2.1 mg/dL (1.8-2.4)
[2022-10-03 09:55] LABS: BILIRUBIN,TOTAL 0.6 mg/dL (0.2-1); TOT PROT 6.4 g/dl (6.4-8.2)
[2022-10-03] MEDS ORDERED: DEXTROSE 5%-NORMAL SALINE 1,000 ML IV SCH (10:15)
[2022-10-03] MEDS: LISINOPRIL 20 MG TABLET PO SCH (10:25)
[2022-10-03] MEDS: INSULIN (LEVEMIR) 100 UNITS/ML UNITS SQ SCH ×2 (10:25→21:10)
[2022-10-03] MEDS: METOPROLOL TARTRATE 50 MG TABLET (FP) PO SCH ×2 (10:26→21:10)
[2022-10-03] MEDS: amLODIPine BESYLATE 10 MG TABLET (FP) PO SCH (10:26)
[2022-10-03] MEDS: SPIRONOLACTONE 25 MG TABLET PO SCH (10:26)
[2022-10-03] MEDS: FAMOTIDINE 10 MG TABLET PO SCH (10:26)
[2022-10-03] MEDS: CEFTRIAXONE 1 GM in DEXTROSE 5%-WATER - 50 ML IVPB SCH (10:26)
[2022-10-03] MEDS: EZETIMIBE 10 MG TABLET (FP) PO SCH (10:26)
[2022-10-03] MEDS ORDERED: LIDOCAINE HCL 1%, 10 MG/ML (20ML VIAL) ONE (10:30)
[2022-10-03] MEDS ORDERED: BACITRACIN 15 GM TUBE TOPICAL OINTMENT ONE (10:31)
[2022-10-03] MEDS ORDERED: DEXAMETHASONE SOD PHOSPHATE 10 MG/1 ML VIAL ONE (10:31)
[2022-10-03] MEDS ORDERED: PROPOFOL 20 ML ONE (10:49)
[2022-10-03] MEDS ORDERED: FENTANYL CITRATE/PF 50 MCG/ML VIAL ONE (10:49)
[2022-10-03] MEDS ORDERED: MIDAZOLAM HCL 2 MG/2 ML SINGLE DOSE VIAL ONE (10:49)
[2022-10-03] MEDS ORDERED: LIDOCAINE HCL 1%, 10 MG/ML (20ML VIAL) NR ONE (11:18)
[2022-10-03] MEDS ORDERED: BUPIVACAINE HCL/PF 0.5% (5MG/ML) 10 ML VIAL NR ONE (11:18)
[2022-10-03] MEDS ORDERED: ONDANSETRON 4 MG/2 ML VIAL ONE (11:30)
[2022-10-03] MEDS ORDERED: GENTAMICIN SO4 80 MG/2 ML VIAL ONE (11:38)
[2022-10-03] MEDS ORDERED: GENTAMICIN SO4 80 MG/2 ML VIAL IVPB ONE (11:48)
[2022-10-03] MEDS ORDERED: ONDANSETRON 4 MG/2 ML VIAL IVPUSH PRN ×2 (12:01→12:12)
[2022-10-03] MEDS ORDERED: ACETAMINOPHEN 325 MG TABLET (FP) PO PRN (12:12)
[2022-10-03] MEDS ORDERED: DOCUSATE SODIUM 100 MG CAPSULE (FP) PO PRN (12:12)
[2022-10-03 13:37] VITALS: RESP 20
[2022-10-03] MEDS: oxyCODONE HCL 5 MG TABLET PO PRN (15:17)
[2022-10-03] MEDS: DEXTROSE 5%-NORMAL SALINE 1,000 ML IV SCH (15:19)
[2022-10-03] MEDS ORDERED: ACETAMINOPHEN 1000 MG/100 ML BAG IVPB ONE (18:33)
[2022-10-03] MEDS ORDERED: MELATONIN 5 MG TABLETS PO ONE (20:54)
[2022-10-03] MEDS ORDERED: QUEtiapine FUMARATE 25 MG TABLET PO SCH (22:00)
[2022-10-03] MEDS ORDERED: ATORVASTATIN CA 80 MG TABLET (FP) PO SCH (22:00)
[2022-10-04] MEDS: oxyCODONE HCL 5 MG TABLET PO PRN ×2 (04:56→14:11)
[2022-10-04] MEDS: INSULIN (LEVEMIR) 100 UNITS/ML UNITS SQ SCH (06:55)
[2022-10-04 09:06] LABS: HEMATOCRIT 26.4 % (32.4-45.2); HEMOGLOBIN 8.6 GM/dL (10.7-15.3); MCH 29.7 pg (25.7-33.7); MCHC 32.7 g/dl (32.0-36.0); MEAN CELL VOLUME 90.7 fl (80-96); MEAN PLT VOLUME 8.8 fl (7.5-11.1); PLATELET COUNT 220 10^3/uL (134-434); RBC 2.91 M/mm3 (3.60-5.2); RDW 16.8 % (11.6-15.6); WHITE BLOOD COUNT 7.3 K/mm3 (4.0-10.0)
[2022-10-04] MEDS ORDERED: amLODIPine BESYLATE 10 MG TABLET (FP) PO SCH (10:00)
[2022-10-04] MEDS ORDERED: CEFTRIAXONE 1 GM in DEXTROSE 5%-WATER - 50 ML IVPB SCH (10:00)
[2022-10-04] MEDS ORDERED: SPIRONOLACTONE 25 MG TABLET PO SCH (10:00)
[2022-10-04] MEDS ORDERED: FAMOTIDINE 10 MG TABLET PO SCH (10:00)
[2022-10-04] MEDS ORDERED: LISINOPRIL 20 MG TABLET PO SCH (10:00)
[2022-10-04] MEDS ORDERED: EZETIMIBE 10 MG TABLET (FP) PO SCH (10:00)
[2022-10-04] MEDS ORDERED: DOXYCYCLINE HYCLATE 100 MG CAPSULE PO SCH (10:00)
[2022-10-04] MEDS: METOPROLOL TARTRATE 50 MG TABLET (FP) PO SCH (11:27)
[2022-10-04] MEDS: DEXTROSE 5%-NORMAL SALINE 1,000 ML IV SCH (15:46)
[2022-10-04 15:49] VITALS: BP 149/65; PULSE 65; TEMP 99
[2022-10-05] MEDS ORDERED: MULTIVITAMINS THER W-MINERALS COMBO TABLET (FP) PO SCH (08:00)
== END 2022-10-04 15:54 | disposition home or self-care (01) | DRG 617 ==
LOC: JER 12:24 → JERBED 14:33 → J8W 22:03
PROVIDERS: ADMIT Family Medicine; ATTEND Family Medicine
PROC: 0Y6V0Z0 Detachment at Right 4th Toe, Complete, Open Approach (ICD-10-PCS; principal; 2022-10-03 11:00)
DX: E11.69 Type 2 diabetes mellitus with other specified complication (principal); E11.52 Type 2 diabetes mellitus with diabetic peripheral angiopathy with gangrene; I96 Gangrene, not elsewhere classified; M86.171 Other acute osteomyelitis, right ankle and foot; I10 Essential (primary) hypertension; E78.5 Hyperlipidemia, unspecified; E87.6 Hypokalemia; D64.9 Anemia, unspecified; R53.1 Weakness; E11.40 Type 2 diabetes mellitus with diabetic neuropathy, unspecified; Z85.3 Personal history of malignant neoplasm of breast; Z89.612 Acquired absence of left leg above knee; Z99.3 Dependence on wheelchair
CPT/HCPCS: 0241U-QW; 36415; 73630-TC-RT-FY; 73721-RT-TC; 80048; 80053; 82962; 83036; 83540; 83550; 83735; 85025; 85027; 85610; 85651; 85730; 86140; 86850; 86900; 86901; 87070; 87075; 87186; 87205; 88305-TC; 88311-TC; 93005; 93010; 94760; 99285-25; J1100; J1644

== ENCOUNTER 2023-05-03 15:46 | Emergency (ER) | payer OTHER ==
[2023-05-03 16:19] VITALS: BMI 22.1
[2023-05-03 16:26] LABS: MCH 31.4 pg (25.7-33.7); MCHC 33.7 g/dl (32.0-36.0); MEAN CELL VOLUME 93.5 fl (80-96); MEAN PLT VOLUME 7.8 fl (7.5-11.1); PLATELET COUNT 198.8 10^3/uL (134-434); RBC 2.09 10^6/uL (3.60-5.2); RDW 15.9 % (11.6-15.6); WHITE BLOOD COUNT 9.6 10^3/uL (4.0-10.8)
[2023-05-03 16:31] LABS: HEMATOCRIT 19.5 % (32.4-45.2); HEMOGLOBIN 6.6 G/dL (10.7-15.3)
[2023-05-03 16:37] LABS: INR 1.02 (0.83-1.09); PROTHROMBIN TIME (PATIENT) 11.8 SEC (9.7-13.0)
[2023-05-03 16:46] LABS: ALBUMIN 3.6 g/dl (3.4-5.0); BILIRUBIN,TOTAL 0.3 mg/dl (0.2-1); BLOOD UREA NITROGEN 42.9 mg/dl (7-18); CALCIUM 8.5 mg/dl (8.5-10.1); CREATININE 1.9 mg/dl (0.6-1.3); POTASSIUM 4.1 mmol/L (3.5-5.1); SGPT/ALT 15.5 U/L (7-52)
[2023-05-03] MEDS ORDERED: ASPIRIN 81 MG CHEWABLE TABLETS PO ONE (21:07)
[2023-05-03 22:09] LABS: PLATELET ESTIMATE ADEQUATE
[2023-05-03] MEDS ORDERED: ACETAMINOPHEN 325 MG TABLET (FP) PO PRN (22:33)
[2023-05-03] MEDS ORDERED: DOCUSATE SODIUM 100 MG CAPSULE (FP) PO PRN (22:33)
[2023-05-04] MEDS: INSULIN SLIDING SCALE (NOVOLOG) 1 VIAL SQ SCH ×3 (07:26→17:56)
[2023-05-04 08:56] LABS: BLOOD UREA NITROGEN 36.7 mg/dl (7-18); CALCIUM 8.6 mg/dl (8.5-10.1); CREATININE 1.6 mg/dl (0.6-1.3); MAGNESIUM 2.1 mg/dL (1.8-2.4); PHOSPHOROUS 3.39 (2.5-4.9); POTASSIUM 3.6 mmol/L (3.5-5.1)
[2023-05-04] MEDS ORDERED: EZETIMIBE 10 MG TABLET (FP) PO SCH (10:00)
[2023-05-04] MEDS ORDERED: amLODIPine BESYLATE 10 MG TABLET (FP) PO SCH (10:00)
[2023-05-04] MEDS ORDERED: FERROUS SO4 325 MG TABLET (FP) PO SCH (10:00)
[2023-05-04 11:58] LABS: HEMATOCRIT 27.6 % (32.4-45.2); HEMOGLOBIN 9.2 GM/dL (10.7-15.3); MCH 30.1 pg (25.7-33.7); MCHC 33.5 g/dl (32.0-36.0); PLATELET COUNT 162 10^3/uL (134-434); RBC 3.07 M/mm3 (3.60-5.2); RDW 15.8 % (11.6-15.6)
[2023-05-04 12:16] LABS: ANISOCYTOSIS 2+; MACROCYTOSIS 0; OVALOCYTE 1+
[2023-05-04 14:21] LABS: HEMATOCRIT 26.6 % (32.4-45.2); HEMOGLOBIN 9.1 G/dL (10.7-15.3); MCH 30.9 pg (25.7-33.7); MCHC 34.1 g/dl (32.0-36.0); MEAN CELL VOLUME 90.6 fl (80-96); MEAN PLT VOLUME 8.3 fl (7.5-11.1); PLATELET COUNT 180.7 10^3/uL (134-434); RBC 2.94 10^6/uL (3.60-5.2); RDW 16.7 % (11.6-15.6); WHITE BLOOD COUNT 7.9 10^3/uL (4.0-10.8)
[2023-05-04] MEDS ORDERED: PATIENT'S OWN MEDICATION (NON-FORMULARY) (Insulin Degludec [Tresiba Flextouch U-100] 100 U SQ SCH (15:00)
[2023-05-04 16:56] VITALS: BP 142/46; PULSE 61; RESP 16; TEMP 97.9
[2023-05-04] MEDS ORDERED: ATORVASTATIN CA 80 MG TABLET (FP) PO SCH (22:00)
[2023-05-04] MEDS ORDERED: FAMOTIDINE 20 MG TABLET PO SCH (22:00)
== END 2023-05-04 17:55 | disposition left against medical advice (07) ==
LOC: FER 15:46 → FM/S 21:16
PROVIDERS: ADMIT Internal Medicine; ATTEND Family Medicine
DX: D64.9 Anemia, unspecified (principal)
CPT/HCPCS: 36415; 36430; 71045-TC-FY; 74176-TC; 80048; 80053; 82962; 83605; 83690; 83735; 84100; 85027; 85610; 85730; 86850; 86900; 86901; 86922; 93005; 99285-25; G0378; P9058

== ENCOUNTER 2023-08-01 15:10 | Inpatient (IN) | payer OTHER ==
[2023-08-01 17:13] LABS: VENOUS BASE EXCESS -8.4 mmol/L (-2-2); VENOUS PCO2 44.3 mmHg (38-52); VENOUS PH 7.238 (7.310-7.410)
[2023-08-01 17:14] LABS: BASO % 0.3 % (0-2.0); EOS % 0.6 % (0-4.5); HEMATOCRIT 23.9 % (32.4-45.2); HEMOGLOBIN 7.7 GM/dL (10.7-15.3); LYMPH % 8.5 % (8-40); MCH 29.6 pg (25.7-33.7); MCHC 32.2 g/dl (32.0-36.0); MEAN CELL VOLUME 92.1 fl (80-96); MEAN PLT VOLUME 8.6 fl (7.5-11.1); MONO % 6.6 % (3.8-10.2); PLATELET COUNT 268 10^3/uL (134-434); RDW 14.1 % (11.6-15.6); WHITE BLOOD COUNT 11.4 K/mm3 (4.0-10.0)
[2023-08-01 17:20] LABS: INR 0.98 (0.83-1.09); PROTHROMBIN TIME (PATIENT) 11.4 SEC (9.7-13.0)
[2023-08-01 17:23] LABS: ACTIVATED PTT 21.8 SECONDS (25.2-36.5)
[2023-08-01] MEDS: LACTATED RINGERS SOLUTION 1,000 ML/1,000 ML INFUS.BAG IV SCH (17:47)
[2023-08-01 17:49] LABS: POTASSIUM 4.6 mmol/L (3.5-5.1)
[2023-08-01 17:51] LABS: CALCIUM 8.6 mg/dL (8.5-10.1)
[2023-08-01 17:52] LABS: ALBUMIN 3.1 g/dl (3.4-5.0); BLOOD UREA NITROGEN 60.9 mg/dL (7-18)
[2023-08-01 17:55] LABS: CREATININE 2.7 mg/dL (0.55-1.3)
[2023-08-01 17:57] LABS: BILIRUBIN,TOTAL 0.2 mg/dL (0.2-1); TOT PROT 6.7 g/dl (6.4-8.2)
[2023-08-01] MEDS ORDERED: DOCUSATE SODIUM 100 MG CAPSULE (FP) PO PRN (20:32)
[2023-08-01] MEDS ORDERED: ACETAMINOPHEN 325 MG TABLET (FP) PO PRN (20:32)
[2023-08-01] MEDS ORDERED: SODIUM CHLORIDE 1,000 ML IV SCH (20:45)
[2023-08-01] MEDS ORDERED: ACETAMINOPHEN 325 MG TABLET (FP) ONE (20:56)
[2023-08-01] MEDS ORDERED: INSULIN SLIDING SCALE (NOVOLOG) 1 VIAL SQ SCH (22:00)
[2023-08-01] MEDS ORDERED: morphine CARPU-JECT 2 MG/1 ML DISP.SYRIN IVPUSH ONE (23:04)
[2023-08-01] MEDS ORDERED: HEPARIN NA (PORCINE) 5,000 UNITS/ML 1ML VIAL IVPUSH PRN ×2 (23:32)
[2023-08-01] MEDS ORDERED: HEPARIN INFUSION - 25,000 UNITS/500 ML INFUS.BAG IVPB SCH (23:45)
[2023-08-01 23:51] LABS: EPI CELLS >36 /uL (0-25.1); HYALINE CASTS 4 /uL (0-3.1); PH,URINE 5.5 (5.0-8.0); URINE APPEARANCE CLEAR; URINE BACTERIA 51 /uL (0-1359); URINE BILIRUBIN NEGATIVE (NEGATIVE); URINE COLOR YELLOW; URINE GLUCOSE (UA) 3+ (NEGATIVE); URINE KETONE TRACE (NEGATIVE); URINE LEUK ESTERASE NEGATIVE (NEGATIVE); URINE NITRITE NEGATIVE (NEGATIVE); URINE PROTEIN 1+ (NEGATIVE); URINE RBC 4 /uL (0-23.9); URINE UROBILINOGEN 0.2 mg/dL (0.2-1.0)
[2023-08-02] MEDS ORDERED: HEPARIN INFUSION - 25,000 UNITS/500 ML INFUS.BAG IVPB ONE (02:12)
[2023-08-02 03:29] LABS: URINE WBC 63.4 /uL (0-25.8); YEAST FEW (NEGATIVE)
[2023-08-02] MEDS: INSULIN SLIDING SCALE (NOVOLOG) 1 VIAL SQ SCH ×4 (05:24→17:22)
[2023-08-02 09:03] LABS: BASO % 0.3 % (0-2.0); EOS % 1.9 % (0-4.5); HEMATOCRIT 23.7 % (32.4-45.2); HEMOGLOBIN 7.9 GM/dL (10.7-15.3); LYMPH % 12.8 % (8-40); MCH 30.9 pg (25.7-33.7); MCHC 33.4 g/dl (32.0-36.0); MEAN CELL VOLUME 92.8 fl (80-96); MEAN PLT VOLUME 8.8 fl (7.5-11.1); MONO % 7.6 % (3.8-10.2); NEUT % 77.4 % (42.8-82.8); PLATELET COUNT 244 10^3/uL (134-434); RBC 2.56 M/mm3 (3.60-5.2); RDW 14.1 % (11.6-15.6); WHITE BLOOD COUNT 9.9 K/mm3 (4.0-10.0)
[2023-08-02] MEDS ORDERED: LISINOPRIL 20 MG TABLET ONE (09:45)
[2023-08-02] MEDS ORDERED: amLODIPine BESYLATE 10 MG TABLET (FP) ONE (09:46)
[2023-08-02] MEDS ORDERED: ISOSORBIDE MONONITRATE 30 MG TAB.SR.24H (FP) PO ONE (09:46)
[2023-08-02] MEDS ORDERED: FERROUS SO4 325 MG TABLET (FP) ONE (09:46)
[2023-08-02] MEDS: FERROUS SO4 325 MG TABLET (FP) PO SCH (09:55)
[2023-08-02] MEDS: LISINOPRIL 20 MG TABLET PO SCH (09:55)
[2023-08-02] MEDS: amLODIPine BESYLATE 10 MG TABLET (FP) PO SCH (09:55)
[2023-08-02] MEDS: ISOSORBIDE MONONITRATE 30 MG TAB.SR.24H (FP) PO SCH (09:55)
[2023-08-02] MEDS: EZETIMIBE 10 MG TABLET (FP) PO SCH (09:58)
[2023-08-02 10:22] LABS: BLOOD UREA NITROGEN 62.5 mg/dL (7-18); CALCIUM 8.5 mg/dL (8.5-10.1); CREATININE 2.2 mg/dL (0.55-1.3); IRON SERUM 23 ug/dL (50-175); MAGNESIUM 2.5 mg/dL (1.8-2.4); PHOSPHOROUS 5.1 mg/dL (2.5-4.9); POTASSIUM 4.1 mmol/L (3.5-5.1); TOTAL IRON BINDING CAPACITY 317 ug/dL (250-450)
[2023-08-02] MEDS ORDERED: HEPARIN NA (PORCINE) 5,000 UNITS/ML 1ML VIAL IVPUSH PRN ×4 (10:48→22:32)
[2023-08-02] MEDS ORDERED: HEPARIN - 25,000 UNIT in SODIUM CHLORIDE 495 ML IV SCH ×2 (11:00→22:45)
[2023-08-02] MEDS ORDERED: ONDANSETRON 4 MG/2 ML VIAL ONE (12:52)
[2023-08-02] MEDS ORDERED: FAMOTIDINE 10 MG/ML VIAL IVPB ONE (12:53)
[2023-08-02] MEDS ORDERED: IRON SUCROSE INJECTION 200 MG in SODIUM CHLORIDE 90 ML IVPB ONE (14:51)
[2023-08-02] MEDS ORDERED: PANTOPRAZOLE SODIUM 40 MG VIAL ONE (16:12)
[2023-08-02] MEDS: PANTOPRAZOLE SODIUM 40 MG VIAL IVPUSH SCH (16:13)
[2023-08-02] MEDS: LACTATED RINGERS SOLUTION 1,000 ML/1,000 ML INFUS.BAG IV SCH (18:18)
[2023-08-02] MEDS: ATORVASTATIN CA 80 MG TABLET (FP) PO SCH (22:03)
[2023-08-03] MEDS ORDERED: HEPARIN SOD,PORK IN 0.45% NACL 25,000 UNITS/500 ML INFUS.BAG IVPB SCH (00:02)
[2023-08-03] MEDS: INSULIN SLIDING SCALE (NOVOLOG) 1 VIAL SQ SCH ×7 (01:26→21:00)
[2023-08-03 02:17] VITALS: BMI 23.4
[2023-08-03] MEDS: PANTOPRAZOLE SODIUM 40 MG VIAL IVPUSH SCH (09:20)
[2023-08-03] MEDS: FERROUS SO4 325 MG TABLET (FP) PO SCH (09:20)
[2023-08-03] MEDS: LISINOPRIL 20 MG TABLET PO SCH (09:20)
[2023-08-03] MEDS: EZETIMIBE 10 MG TABLET (FP) PO SCH (09:20)
[2023-08-03] MEDS: amLODIPine BESYLATE 10 MG TABLET (FP) PO SCH (09:20)
[2023-08-03] MEDS: ISOSORBIDE MONONITRATE 30 MG TAB.SR.24H (FP) PO SCH (09:20)
[2023-08-03] MEDS: ACETAMINOPHEN 325 MG TABLET (FP) PO PRN (09:24)
[2023-08-03 09:47] LABS: HEMATOCRIT 21.8 % (32.4-45.2); MCH 29.4 pg (25.7-33.7); MCHC 31.1 g/dl (32.0-36.0); MEAN CELL VOLUME 94.7 fl (80-96); MEAN PLT VOLUME 8.8 fl (7.5-11.1); PLATELET COUNT 307 10^3/uL (134-434); WHITE BLOOD COUNT 11.2 K/mm3 (4.0-10.0)
[2023-08-03 10:07] LABS: HEMOGLOBIN 6.8 GM/dL (10.7-15.3)
[2023-08-03 12:41] LABS: BILIRUBIN,TOTAL 0.2 mg/dL (0.2-1)
[2023-08-03 12:49] LABS: ALBUMIN 2.8 g/dl (3.4-5.0); BLOOD UREA NITROGEN 56.8 mg/dL (7-18); CALCIUM 8.6 mg/dL (8.5-10.1); POTASSIUM 4.1 mmol/L (3.5-5.1); TOT PROT 6.2 g/dl (6.4-8.2)
[2023-08-03] MEDS ORDERED: SODIUM CHLORIDE 0.45% 1,000 ML IV SCH (13:30)
[2023-08-03 18:39] VITALS: RESP 18
[2023-08-03] MEDS: ATORVASTATIN CA 80 MG TABLET (FP) PO SCH (21:41)
[2023-08-04] MEDS ORDERED: MELATONIN 5 MG TABLETS PO ONE (00:42)
[2023-08-04] MEDS: INSULIN SLIDING SCALE (NOVOLOG) 1 VIAL SQ SCH ×4 (01:21→11:46)
[2023-08-04 01:22] VITALS: TEMP 98.8
[2023-08-04 07:12] VITALS: BP 146/58; PULSE 76
[2023-08-04 07:15] LABS: HEMATOCRIT 30.8 % (32.4-45.2); HEMOGLOBIN 10.2 GM/dL (10.7-15.3); MCH 29.9 pg (25.7-33.7); MEAN CELL VOLUME 90.6 fl (80-96); MEAN PLT VOLUME 7.8 fl (7.5-11.1); PLATELET COUNT 281 10^3/uL (134-434); RDW 14.7 % (11.6-15.6); WHITE BLOOD COUNT 10.6 K/mm3 (4.0-10.0)
[2023-08-04 09:19] LABS: POTASSIUM 4.3 mmol/L (3.5-5.1)
[2023-08-04 09:27] LABS: ALBUMIN 2.6 g/dl (3.4-5.0)
[2023-08-04 09:28] LABS: BLOOD UREA NITROGEN 42.2 mg/dL (7-18); CALCIUM 8.8 mg/dL (8.5-10.1)
[2023-08-04 09:30] LABS: CREATININE 1.5 mg/dL (0.55-1.3)
[2023-08-04 09:32] LABS: BILIRUBIN,TOTAL 0.9 mg/dL (0.2-1)
[2023-08-04] MEDS: PANTOPRAZOLE SODIUM 40 MG VIAL IVPUSH SCH (10:13)
[2023-08-04] MEDS: EZETIMIBE 10 MG TABLET (FP) PO SCH (10:13)
[2023-08-04] MEDS: LISINOPRIL 20 MG TABLET PO SCH (10:14)
[2023-08-04] MEDS: amLODIPine BESYLATE 10 MG TABLET (FP) PO SCH (10:14)
[2023-08-04] MEDS: FERROUS SO4 325 MG TABLET (FP) PO SCH (10:14)
[2023-08-04] MEDS: ISOSORBIDE MONONITRATE 30 MG TAB.SR.24H (FP) PO SCH (10:14)
[2023-08-04] MEDS: ACETAMINOPHEN 325 MG TABLET (FP) PO PRN (13:50)
== END 2023-08-04 14:14 | disposition left against medical advice (07) | DRG 300 ==
LOC: JER 15:10 → JERBED 18:31 → J5S 08-02 18:33
PROVIDERS: ADMIT Internal Medicine; ATTEND Family Medicine
DX: E11.52 Type 2 diabetes mellitus with diabetic peripheral angiopathy with gangrene (principal); E87.1 Hypo-osmolality and hyponatremia; I13.0 Hypertensive heart and chronic kidney disease with heart failure and stage 1 through stage 4 chronic kidney disease, or unspecified chronic kidney disease; I96 Gangrene, not elsewhere classified; N17.9 Acute kidney failure, unspecified; E78.5 Hyperlipidemia, unspecified; E11.65 Type 2 diabetes mellitus with hyperglycemia; E86.0 Dehydration; M79.671 Pain in right foot; N18.9 Chronic kidney disease, unspecified; I50.9 Heart failure, unspecified; E11.22 Type 2 diabetes mellitus with diabetic chronic kidney disease; D50.9 Iron deficiency anemia, unspecified; E11.40 Type 2 diabetes mellitus with diabetic neuropathy, unspecified; Z85.3 Personal history of malignant neoplasm of breast; Z89.612 Acquired absence of left leg above knee; Z89.421 Acquired absence of other right toe(s); Z86.718 Personal history of other venous thrombosis and embolism
CPT/HCPCS: 0241U-QW; 36415; 36430; 71045-TC-FY; 80048; 80053; 81003; 82010; 82728; 82803; 82962; 83540; 83550; 83615; 83735; 84100; 84484; 85025; 85027; 85045; 85610; 85730; 86850; 86900; 86901; 87040; 87086; 93005; 93010; 99285-25; J1644; J1756; P9058

== ENCOUNTER 2023-08-07 04:26 | Inpatient (IN) | payer OTHER ==
[2023-08-07] MEDS ORDERED: HEPARIN NA (PORCINE) 5,000 UNITS/ML 1ML VIAL ONE (12:04)
[2023-08-07] MEDS ORDERED: LIDOCAINE HCL 1%, 10 MG/ML (20ML VIAL) ONE (12:05)
[2023-08-07] MEDS ORDERED: LIDOCAINE HCL 0.5%, 5 MG/ML (50mL SDVIAL) ONE (12:05)
[2023-08-07] MEDS ORDERED: LIDOCAINE HCL 1%, 10 MG/ML (20ML VIAL) INF ONE (12:44)
[2023-08-07] MEDS ORDERED: HEPARIN NA (PORCINE) 5,000 UNITS/ML 1ML VIAL IV ONE (12:45)
[2023-08-07] MEDS ORDERED: FENTANYL CITRATE/PF 50 MCG/ML VIAL ONE ×6 (12:50→15:44)
[2023-08-07] MEDS ORDERED: ETOMIDATE 20 MG/10 ML VIAL IVPUSH ONE (12:51)
[2023-08-07] MEDS ORDERED: LIDOCAINE HCL/PF 2% SDV 5ML VIAL ONE (12:51)
[2023-08-07] MEDS ORDERED: ROCURONIUM BROMIDE 50 MG/5 ML SYRINGE ONE ×2 (12:51→16:38)
[2023-08-07] MEDS ORDERED: MIDAZOLAM HCL 2 MG/2 ML SINGLE DOSE VIAL ONE (12:51)
[2023-08-07] MEDS ORDERED: PROPOFOL 20 ML ONE ×2 (13:39→15:40)
[2023-08-07] MEDS ORDERED: VANCOMYCIN 1,000 MG VIAL (RESTRICTED TO ID ONLY) ONE ×2 (13:43→17:08)
[2023-08-07] MEDS ORDERED: VANCOMYCIN 1,000 MG VIAL (RESTRICTED TO ID ONLY) IVPB ONE ×2 (13:45→17:15)
[2023-08-07] MEDS ORDERED: METOCLOPRAMIDE HCL INJECTION 10 MG/2 ML VIAL ONE (14:13)
[2023-08-07] MEDS ORDERED: ONDANSETRON 4 MG/2 ML VIAL ONE (14:13)
[2023-08-07] MEDS ORDERED: HYDROmorphone HCl 2 MG/ML VIAL ONE (16:37)
[2023-08-07] MEDS ORDERED: IOVERSOL 320 MG/ML ML IV ONE (16:42)
[2023-08-07] MEDS ORDERED: IOHEXOL 300 MG/ML INFUS..BTL IV ONE (16:42)
[2023-08-07] MEDS ORDERED: SEVOFLURANE 250 ML BTL ONE (16:44)
[2023-08-07] MEDS ORDERED: SUGAMMADEX SODIUM 200 MG/2 ML VIAL ONE (17:05)
[2023-08-07] MEDS ORDERED: SODIUM CHLORIDE 0.9% P/F 10 ML VIAL IJ ONE (17:10)
[2023-08-07] MEDS ORDERED: POVIDONE-IODINE OINTMENT 10% - 28.4 GM TUBE ONE (17:26)
[2023-08-07] MEDS: ACETAMINOPHEN 1000 MG/100 ML BAG IVPB SCH (17:40)
[2023-08-07] MEDS ORDERED: ONDANSETRON 4 MG/2 ML VIAL IVPUSH PRN ×2 (17:50→18:10)
[2023-08-07] MEDS ORDERED: morphine CARPU-JECT 4 MG/1 ML DISP.SYRIN IVPUSH PRN (17:56)
[2023-08-07] MEDS ORDERED: LACTATED RINGERS SOLUTION 1,000 ML IV SCH ×2 (18:00→18:10)
[2023-08-07 18:36] LABS: BASO % 0.3 % (0-2.0); EOS % 1.5 % (0-4.5); HEMATOCRIT 26.3 % (32.4-45.2); HEMOGLOBIN 8.7 GM/dL (10.7-15.3); LYMPH % 13.4 % (8-40); MCH 29.7 pg (25.7-33.7); MCHC 33.1 g/dl (32.0-36.0); MEAN CELL VOLUME 89.8 fl (80-96); MEAN PLT VOLUME 7.3 fl (7.5-11.1); MONO % 5.7 % (3.8-10.2); NEUT % 79.1 % (42.8-82.8); PLATELET COUNT 348 10^3/uL (134-434); RBC 2.93 M/mm3 (3.60-5.2); RDW 14.6 % (11.6-15.6); WHITE BLOOD COUNT 13.7 K/mm3 (4.0-10.0)
[2023-08-07 19:34] LABS: POTASSIUM 4.1 mmol/L (3.5-5.1)
[2023-08-07 19:35] LABS: CALCIUM 8.1 mg/dL (8.5-10.1)
[2023-08-07 19:36] LABS: BLOOD UREA NITROGEN 29.7 mg/dL (7-18)
[2023-08-07 19:39] LABS: CREATININE 1.4 mg/dL (0.55-1.3)
[2023-08-07] MEDS: SODIUM CHLORIDE 1,000 ML IV SCH (21:08)
[2023-08-07 21:13] LABS: POTASSIUM 4.2 mmol/L (3.5-5.1)
[2023-08-07 21:14] LABS: CALCIUM 8.6 mg/dL (8.5-10.1)
[2023-08-07 21:15] LABS: BLOOD UREA NITROGEN 27.7 mg/dL (7-18)
[2023-08-07 21:18] LABS: CREATININE 1.3 mg/dL (0.55-1.3)
[2023-08-07] MEDS ORDERED: MUPIROCIN 2% TOPICAL OINTMENT FOR DECOLONIZATION NS SCH (22:00)
[2023-08-07] MEDS ORDERED: CHLORHEXIDINE GLUCONATE 4% CLEANSER FOR DECOLONIZATION TP SCH (22:00)
[2023-08-07] MEDS: FAMOTIDINE 20 MG TABLET PO SCH (22:41)
[2023-08-07] MEDS: CHLORHEXIDINE GLUCONATE 4% CLEANSER FOR DECOLONIZATION TP SCH (22:41)
[2023-08-07] MEDS: MUPIROCIN 2% TOPICAL OINTMENT FOR DECOLONIZATION NS SCH (22:41)
[2023-08-07] MEDS: INSULIN SLIDING SCALE (NOVOLOG) 1 VIAL SQ SCH (22:47)
[2023-08-08] MEDS: ACETAMINOPHEN 1000 MG/100 ML BAG IVPB SCH ×3 (00:20→12:27)
[2023-08-08] MEDS: morphine SULFATE 4 MG/ML VIAL IVPUSH PRN ×4 (02:30→20:54)
[2023-08-08] MEDS: INSULIN SLIDING SCALE (NOVOLOG) 1 VIAL SQ SCH ×4 (06:57→23:30)
[2023-08-08 07:43] LABS: HEMATOCRIT 25.1 % (32.4-45.2); HEMOGLOBIN 8.2 GM/dL (10.7-15.3); MCH 30.3 pg (25.7-33.7); MCHC 32.7 g/dl (32.0-36.0); MEAN CELL VOLUME 92.8 fl (80-96); PLATELET COUNT 319 10^3/uL (134-434); RDW 14.7 % (11.6-15.6); WHITE BLOOD COUNT 11.2 K/mm3 (4.0-10.0)
[2023-08-08 07:48] LABS: POTASSIUM 4.8 mmol/L (3.5-5.1)
[2023-08-08 07:58] LABS: CALCIUM 8.5 mg/dL (8.5-10.1)
[2023-08-08 07:59] LABS: ALBUMIN 2.3 g/dl (3.4-5.0); BLOOD UREA NITROGEN 24.5 mg/dL (7-18)
[2023-08-08 08:02] LABS: CREATININE 1.3 mg/dL (0.55-1.3)
[2023-08-08 08:03] LABS: BILIRUBIN,TOTAL 0.7 mg/dL (0.2-1); TOT PROT 5.3 g/dl (6.4-8.2)
[2023-08-08] MEDS: FERROUS SO4 325 MG TABLET (FP) PO SCH (09:28)
[2023-08-08] MEDS: MUPIROCIN 2% TOPICAL OINTMENT FOR DECOLONIZATION NS SCH ×2 (09:28→22:00)
[2023-08-08] MEDS: amLODIPine BESYLATE 10 MG TABLET (FP) PO SCH (09:28)
[2023-08-08] MEDS ORDERED: HEPARIN NA (PORCINE) 5,000 UNITS/ML 1ML VIAL IVPUSH PRN ×2 (09:35)
[2023-08-08] MEDS ORDERED: ENOXAPARIN NA (PORCINE) 60 MG/0.6 ML DISP.SYRIN SQ SCH (10:00)
[2023-08-08] MEDS ORDERED: APIXABAN 2.5 MG TABLET PO SCH (10:00)
[2023-08-08] MEDS ORDERED: PATIENT'S OWN MEDICATION (NON-FORMULARY) (Dapagliflozin Propanediol 10 MG Tablet) PO SCH (10:00)
[2023-08-08] MEDS ORDERED: VANCOMYCIN/WATER FOR INJ (PEG) 1,000 MG/200 ML BAG IVPB SCH (10:00)
[2023-08-08] MEDS ORDERED: VANCOMYCIN 1,000 MG in DEXTROSE 5%-WATER - 250 ML IVPB SCH (10:00)
[2023-08-08] MEDS: ONDANSETRON 4 MG/2 ML VIAL IVPUSH PRN ×2 (10:56→17:54)
[2023-08-08] MEDS: HEPARIN - 25,000 UNIT in SODIUM CHLORIDE 495 ML IV SCH (11:29)
[2023-08-08] MEDS ORDERED: IRON SUCROSE INJECTION 200 MG in SODIUM CHLORIDE 90 ML IVPB ONE (12:00)
[2023-08-08] MEDS: DOXYCYCLINE HYCLATE 100 MG CAPSULE PO SCH (17:54)
[2023-08-08] MEDS ORDERED: NICOTINE 14 MG/24 HOURS TOPICAL PATCH TD SCH (20:45)
[2023-08-08] MEDS: SODIUM CHLORIDE 1,000 ML IV SCH (20:53)
[2023-08-08 20:55] LABS: BASO % 0.5 % (0-2.0); EOS % 2.2 % (0-4.5); HEMATOCRIT 32.5 % (32.4-45.2); HEMOGLOBIN 10.5 GM/dL (10.7-15.3); LYMPH % 7.5 % (8-40); MCHC 32.2 g/dl (32.0-36.0); MEAN CELL VOLUME 93.2 fl (80-96); MEAN PLT VOLUME 8.6 fl (7.5-11.1); MONO % 5.6 % (3.8-10.2); NEUT % 84.2 % (42.8-82.8); PLATELET COUNT 212 10^3/uL (134-434); RBC 3.49 M/mm3 (3.60-5.2); RDW 14.9 % (11.6-15.6)
[2023-08-08] MEDS ORDERED: ATORVASTATIN CA 80 MG TABLET (FP) PO SCH (22:00)
[2023-08-08] MEDS: CHLORHEXIDINE GLUCONATE 4% CLEANSER FOR DECOLONIZATION TP SCH (22:10)
[2023-08-08] MEDS: FAMOTIDINE 20 MG TABLET PO SCH (23:24)
[2023-08-09] MEDS: INSULIN SLIDING SCALE (NOVOLOG) 1 VIAL SQ SCH ×4 (06:29→22:01)
[2023-08-09 07:26] LABS: BASO % 0.6 % (0-2.0); EOS % 2.2 % (0-4.5); MCH 29.8 pg (25.7-33.7); MCHC 31.9 g/dl (32.0-36.0); MEAN CELL VOLUME 93.4 fl (80-96); MEAN PLT VOLUME 8.6 fl (7.5-11.1); MONO % 6.8 % (3.8-10.2); NEUT % 82.4 % (42.8-82.8); PLATELET COUNT 326 10^3/uL (134-434); RBC 2.67 M/mm3 (3.60-5.2); RDW 14.9 % (11.6-15.6); WHITE BLOOD COUNT 11.9 K/mm3 (4.0-10.0)
[2023-08-09] MEDS ORDERED: HEPARIN NA (PORCINE) 5,000 UNITS/ML 1ML VIAL ONE ×2 (07:27→10:57)
[2023-08-09 08:02] LABS: POTASSIUM 4.6 mmol/L (3.5-5.1)
[2023-08-09 08:14] LABS: BLOOD UREA NITROGEN 19.5 mg/dL (7-18); CALCIUM 8.2 mg/dL (8.5-10.1)
[2023-08-09 08:15] LABS: ALBUMIN 2.2 g/dl (3.4-5.0); MAGNESIUM 1.7 mg/dL (1.8-2.4)
[2023-08-09 08:17] LABS: CREATININE 1.2 mg/dL (0.55-1.3); PHOSPHOROUS 2.7 mg/dL (2.5-4.9)
[2023-08-09 08:18] LABS: BILIRUBIN,TOTAL 0.4 mg/dL (0.2-1); TOT PROT 5.5 g/dl (6.4-8.2)
[2023-08-09] MEDS ORDERED: GENTAMICIN SO4 80 MG/2 ML VIAL ONE (08:54)
[2023-08-09] MEDS ORDERED: VANCOMYCIN 1,000 MG VIAL (RESTRICTED TO ID ONLY) ONE (08:54)
[2023-08-09] MEDS ORDERED: ceFAZolin SODIUM 1 GM VIAL ONE (08:54)
[2023-08-09] MEDS ORDERED: SUCCINYLCHOLINE CHLORIDE 200 MG/10 ML SYRINGE ONE (09:15)
[2023-08-09] MEDS ORDERED: ROCURONIUM BROMIDE 50 MG/5 ML SYRINGE ONE (09:27)
[2023-08-09] MEDS ORDERED: NOREPINEPHRINE BITARTRATE 4 MG/4 ML ML IV ONE (09:27)
[2023-08-09] MEDS ORDERED: MIDAZOLAM HCL 2 MG/2 ML SINGLE DOSE VIAL ONE (09:35)
[2023-08-09] MEDS ORDERED: PROPOFOL 20 ML ONE (09:35)
[2023-08-09] MEDS ORDERED: FENTANYL CITRATE/PF 50 MCG/ML VIAL ONE ×3 (09:36→13:53)
[2023-08-09] MEDS ORDERED: HYDROmorphone HCl 2 MG/ML VIAL ONE (09:41)
[2023-08-09] MEDS: MUPIROCIN 2% TOPICAL OINTMENT FOR DECOLONIZATION NS SCH ×2 (09:47→21:52)
[2023-08-09] MEDS: FERROUS SO4 325 MG TABLET (FP) PO SCH (09:47)
[2023-08-09] MEDS: amLODIPine BESYLATE 10 MG TABLET (FP) PO SCH (09:48)
[2023-08-09] MEDS: DOXYCYCLINE HYCLATE 100 MG CAPSULE PO SCH ×2 (09:48→18:46)
[2023-08-09] MEDS ORDERED: BUPIVACAINE HCL/PF 0.5% (5MG/ML) 10 ML VIAL ONE (10:45)
[2023-08-09] MEDS ORDERED: VANCOMYCIN 1,000 MG VIAL (RESTRICTED TO ID ONLY) IVPB ONE (11:00)
[2023-08-09] MEDS: HEPARIN - 25,000 UNIT in SODIUM CHLORIDE 495 ML IV SCH ×2 (11:03→17:28)
[2023-08-09] MEDS ORDERED: POVIDONE-IODINE OINTMENT 10% - 28.4 GM TUBE ONE (11:58)
[2023-08-09] MEDS ORDERED: SUGAMMADEX SODIUM 200 MG/2 ML VIAL ONE (12:09)
[2023-08-09] MEDS ORDERED: LABETALOL HCL 20 MG/4 ML VIAL ONE (12:09)
[2023-08-09] MEDS ORDERED: ALBUTEROL SO4 HFA INHALER IH ONE (12:12)
[2023-08-09] MEDS ORDERED: POVIDONE-IODINE OINTMENT 10% - 28.4 GM TUBE TP ONE (12:24)
[2023-08-09] MEDS ORDERED: LACTATED RINGERS SOLUTION 1,000 ML IV SCH (13:15)
[2023-08-09] MEDS ORDERED: SODIUM CHLORIDE 1,000 ML IV SCH (13:22)
[2023-08-09] MEDS ORDERED: ONDANSETRON 4 MG/2 ML VIAL IVPUSH PRN (13:22)
[2023-08-09] MEDS ORDERED: HEPARIN NA (PORCINE) 5,000 UNITS/ML 1ML VIAL IVPUSH PRN ×2 (13:22)
[2023-08-09] MEDS ORDERED: ALBUTEROL SO4 0.083% IH SOL 2.5 MG/3 ML VIAL.NEB. NEB PRN (17:07)
[2023-08-09] MEDS ORDERED: ALBUTEROL SO4 2.5/IPRATROPIUM 0.5 INH SOL 3 ML VIAL.NEB. NEB ONE (17:11)
[2023-08-09] MEDS: NICOTINE 14 MG/24 HOURS TOPICAL PATCH TD SCH (18:46)
[2023-08-09] MEDS: methylPREDNISolone NA SUCC 40 MG/1 ML VIAL IVPUSH SCH (18:46)
[2023-08-09] MEDS: morphine SULFATE 4 MG/ML VIAL IVPUSH PRN ×2 (20:12→23:13)
[2023-08-09] MEDS: ALBUTEROL SO4 2.5/IPRATROPIUM 0.5 INH SOL 3 ML VIAL.NEB. NEB SCH (20:32)
[2023-08-09] MEDS: FUROSEMIDE INJECTION 100 MG in DEXTROSE 5%-WATER - 90 ML IVPB SCH (20:45)
[2023-08-09] MEDS: FAMOTIDINE 20 MG TABLET PO SCH (21:52)
[2023-08-09] MEDS: CHLORHEXIDINE GLUCONATE 4% CLEANSER FOR DECOLONIZATION TP SCH (21:52)
[2023-08-09] MEDS: ATORVASTATIN CA 80 MG TABLET (FP) PO SCH (21:52)
[2023-08-09] MEDS: MELATONIN 5 MG TABLETS PO PRN (21:52)
[2023-08-09] MEDS ORDERED: INSULIN (NOVOLOG) ASPART 100 UNITS/ML 10ML VIAL ONE (22:00)
[2023-08-10] MEDS: morphine SULFATE 4 MG/ML VIAL IVPUSH PRN ×2 (02:28→06:20)
[2023-08-10] MEDS: FUROSEMIDE INJECTION 100 MG in DEXTROSE 5%-WATER - 90 ML IVPB SCH ×2 (06:44→17:19)
[2023-08-10] MEDS: methylPREDNISolone NA SUCC 40 MG/1 ML VIAL IVPUSH SCH ×2 (06:45→17:27)
[2023-08-10] MEDS: INSULIN SLIDING SCALE (NOVOLOG) 1 VIAL SQ SCH ×4 (06:50→21:46)
[2023-08-10 07:28] LABS: HEMATOCRIT 33.6 % (32.4-45.2); HEMOGLOBIN 10.8 GM/dL (10.7-15.3); MCH 29.3 pg (25.7-33.7); MEAN CELL VOLUME 91.5 fl (80-96); MEAN PLT VOLUME 8.6 fl (7.5-11.1); PLATELET COUNT 336 10^3/uL (134-434); RBC 3.68 M/mm3 (3.60-5.2); RDW 15.3 % (11.6-15.6); WHITE BLOOD COUNT 23.1 K/mm3 (4.0-10.0)
[2023-08-10 07:45] LABS: POTASSIUM 4.7 mmol/L (3.5-5.1)
[2023-08-10 07:47] LABS: BLOOD UREA NITROGEN 28.8 mg/dL (7-18); CALCIUM 8.2 mg/dL (8.5-10.1); MAGNESIUM 1.5 mg/dL (1.8-2.4)
[2023-08-10 07:50] LABS: PHOSPHOROUS 2.9 mg/dL (2.5-4.9)
[2023-08-10 07:51] LABS: CREATININE 1.4 mg/dL (0.55-1.3)
[2023-08-10 07:52] LABS: BILIRUBIN,TOTAL 0.6 mg/dL (0.2-1); TOT PROT 5.5 g/dl (6.4-8.2)
[2023-08-10] MEDS: ALBUTEROL SO4 2.5/IPRATROPIUM 0.5 INH SOL 3 ML VIAL.NEB. NEB SCH ×3 (07:55→20:10)
[2023-08-10] MEDS: DOXYCYCLINE HYCLATE 100 MG CAPSULE PO SCH ×2 (09:09→17:29)
[2023-08-10] MEDS: MUPIROCIN 2% TOPICAL OINTMENT FOR DECOLONIZATION NS SCH ×2 (09:09→21:46)
[2023-08-10] MEDS: FERROUS SO4 325 MG TABLET (FP) PO SCH (09:09)
[2023-08-10] MEDS ORDERED: amLODIPine BESYLATE 10 MG TABLET (FP) PO SCH (10:00)
[2023-08-10 10:12] LABS: ANISOCYTOSIS 0; HELMET CELLS 0; HOWELL-JOLLY BODIES 0; MACROCYTOSIS 0; OVALOCYTE 0; ROULEAU 0; SICKELED CELLS 0; TARGET CELLS 0; TEAR DROP CELLS 0; TOXIC GRANULATION 0
[2023-08-10] MEDS ORDERED: INSULIN (NOVOLOG) ASPART 100 UNITS/ML 10ML VIAL ONE ×2 (11:31→18:10)
[2023-08-10] MEDS ORDERED: FUROSEMIDE 40 MG/4 ML INJECTABLE VIAL ONE (16:06)
[2023-08-10] MEDS: HEPARIN - 25,000 UNIT in SODIUM CHLORIDE 495 ML IV SCH (16:32)
[2023-08-10] MEDS: HYDROmorphone HCl 2 MG/ML VIAL IVPUSH PRN ×2 (17:27→21:11)
[2023-08-10] MEDS: NICOTINE 14 MG/24 HOURS TOPICAL PATCH TD SCH (17:50)
[2023-08-10] MEDS: ATORVASTATIN CA 80 MG TABLET (FP) PO SCH (21:13)
[2023-08-10] MEDS: CHLORHEXIDINE GLUCONATE 4% CLEANSER FOR DECOLONIZATION TP SCH (21:14)
[2023-08-10] MEDS: FAMOTIDINE 20 MG TABLET PO SCH (21:14)
[2023-08-10] MEDS: MELATONIN 5 MG TABLETS PO PRN (21:15)
[2023-08-11] MEDS: FUROSEMIDE INJECTION 100 MG in DEXTROSE 5%-WATER - 90 ML IVPB SCH ×2 (02:28→12:00)
[2023-08-11] MEDS: methylPREDNISolone NA SUCC 40 MG/1 ML VIAL IVPUSH SCH (05:04)
[2023-08-11] MEDS: INSULIN SLIDING SCALE (NOVOLOG) 1 VIAL SQ SCH ×4 (06:18→21:35)
[2023-08-11 07:25] LABS: HEMATOCRIT 33.1 % (32.4-45.2); HEMOGLOBIN 10.8 GM/dL (10.7-15.3); MCH 29.8 pg (25.7-33.7); MCHC 32.7 g/dl (32.0-36.0); MEAN CELL VOLUME 91.1 fl (80-96); MEAN PLT VOLUME 8.6 fl (7.5-11.1); PLATELET COUNT 356 10^3/uL (134-434); RBC 3.63 M/mm3 (3.60-5.2); WHITE BLOOD COUNT 19.4 K/mm3 (4.0-10.0)
[2023-08-11 07:31] LABS: CHLORIDE 102 mmol/L (98-107); POTASSIUM 4.6 mmol/L (3.5-5.1); SODIUM 133 mmol/L (136-145)
[2023-08-11 07:34] LABS: ALBUMIN 2.2 g/dl (3.4-5.0); ANION GAP 9 mmol/L (4-13); BLOOD UREA NITROGEN 39.5 mg/dL (7-18); CALCIUM 9.3 mg/dL (8.5-10.1); CO2 22 mmol/L (21-32)
[2023-08-11 07:37] LABS: CREATININE 1.7 mg/dL (0.55-1.3); SGOT/AST 22 U/L (15-37); SGPT/ALT 20 U/L (13-61)
[2023-08-11 07:39] LABS: BILIRUBIN,TOTAL 0.4 mg/dL (0.2-1); TOT PROT 6.1 g/dl (6.4-8.2)
[2023-08-11 07:40] LABS: ALK PHOS 90 U/L (45-117)
[2023-08-11 07:43] LABS: GLUCOSE,RANDOM 413 mg/dL (74-106)
[2023-08-11] MEDS: HEPARIN NA (PORCINE) 5,000 UNITS/ML 1ML VIAL IVPUSH PRN (08:15)
[2023-08-11] MEDS: ALBUTEROL SO4 2.5/IPRATROPIUM 0.5 INH SOL 3 ML VIAL.NEB. NEB SCH ×3 (08:34→20:30)
[2023-08-11] MEDS: NIFEdipine E.R 60 MG TABLET PO SCH (09:19)
[2023-08-11] MEDS: DOXYCYCLINE HYCLATE 100 MG CAPSULE PO SCH ×2 (09:19→17:13)
[2023-08-11] MEDS: FERROUS SO4 325 MG TABLET (FP) PO SCH (09:19)
[2023-08-11] MEDS: MUPIROCIN 2% TOPICAL OINTMENT FOR DECOLONIZATION NS SCH ×2 (09:20→21:23)
[2023-08-11] MEDS: HYDROmorphone HCl 2 MG/ML VIAL IVPUSH PRN ×2 (11:01→17:27)
[2023-08-11 11:11] LABS: ANISOCYTOSIS 2+; MACROCYTOSIS 0
[2023-08-11] MEDS ORDERED: INSULIN (NOVOLOG) ASPART 100 UNITS/ML 10ML VIAL ONE ×2 (12:00→17:29)
[2023-08-11] MEDS: HEPARIN - 25,000 UNIT in SODIUM CHLORIDE 495 ML IV SCH (17:27)
[2023-08-11] MEDS: CHLORHEXIDINE GLUCONATE 4% CLEANSER FOR DECOLONIZATION TP SCH (21:23)
[2023-08-11] MEDS: ATORVASTATIN CA 80 MG TABLET (FP) PO SCH (21:35)
[2023-08-11] MEDS: FAMOTIDINE 20 MG TABLET PO SCH (21:35)
[2023-08-12] MEDS: HYDROmorphone HCl 2 MG/ML VIAL IVPUSH PRN ×4 (00:01→21:56)
[2023-08-12] MEDS: HEPARIN NA (PORCINE) 5,000 UNITS/ML 1ML VIAL IVPUSH PRN (00:02)
[2023-08-12] MEDS: FUROSEMIDE INJECTION 100 MG in DEXTROSE 5%-WATER - 90 ML IVPB SCH ×2 (00:11→11:43)
[2023-08-12] MEDS: INSULIN SLIDING SCALE (NOVOLOG) 1 VIAL SQ SCH ×4 (06:39→22:10)
[2023-08-12] MEDS: ALBUTEROL SO4 2.5/IPRATROPIUM 0.5 INH SOL 3 ML VIAL.NEB. NEB SCH ×3 (07:35→20:10)
[2023-08-12 08:04] LABS: BASO % 0.2 % (0-2.0); HEMATOCRIT 32.6 % (32.4-45.2); HEMOGLOBIN 10.5 GM/dL (10.7-15.3); LYMPH % 5.3 % (8-40); MCH 29.5 pg (25.7-33.7); MCHC 32.2 g/dl (32.0-36.0); MEAN CELL VOLUME 91.5 fl (80-96); MEAN PLT VOLUME 8.6 fl (7.5-11.1); MONO % 6.4 % (3.8-10.2); NEUT % 88.1 % (42.8-82.8); PLATELET COUNT 392 10^3/uL (134-434); POTASSIUM 3.9 mmol/L (3.5-5.1); RBC 3.56 M/mm3 (3.60-5.2); RDW 14.8 % (11.6-15.6); WHITE BLOOD COUNT 19.6 K/mm3 (4.0-10.0)
[2023-08-12 08:07] LABS: BLOOD UREA NITROGEN 52.5 mg/dL (7-18); CALCIUM 8.9 mg/dL (8.5-10.1)
[2023-08-12 08:08] LABS: ALBUMIN 2.2 g/dl (3.4-5.0)
[2023-08-12 08:10] LABS: PHOSPHOROUS 3.5 mg/dL (2.5-4.9)
[2023-08-12 08:11] LABS: CREATININE 1.8 mg/dL (0.55-1.3); MAGNESIUM 1.8 mg/dL (1.8-2.4)
[2023-08-12 08:12] LABS: BILIRUBIN,TOTAL 0.5 mg/dL (0.2-1); TOT PROT 5.9 g/dl (6.4-8.2)
[2023-08-12] MEDS: NIFEdipine E.R 60 MG TABLET PO SCH (11:25)
[2023-08-12] MEDS: FERROUS SO4 325 MG TABLET (FP) PO SCH (11:27)
[2023-08-12] MEDS: DOXYCYCLINE HYCLATE 100 MG CAPSULE PO SCH ×2 (11:29→17:53)
[2023-08-12] MEDS: INSULIN (NOVOLOG) ASPART 100 UNITS/ML 10ML VIAL SQ SCH ×2 (12:26→20:01)
[2023-08-12] MEDS: MUPIROCIN 2% TOPICAL OINTMENT FOR DECOLONIZATION NS SCH ×2 (12:27→21:52)
[2023-08-12 14:08] VITALS: BMI 24.5
[2023-08-12] MEDS: HEPARIN - 25,000 UNIT in SODIUM CHLORIDE 495 ML IV SCH (15:44)
[2023-08-12] MEDS ORDERED: ACETAMINOPHEN 1000 MG/100 ML BAG IVPB PRN (21:22)
[2023-08-12] MEDS: ATORVASTATIN CA 80 MG TABLET (FP) PO SCH (21:52)
[2023-08-12] MEDS: FAMOTIDINE 20 MG TABLET PO SCH (21:52)
[2023-08-12] MEDS: MELATONIN 5 MG TABLETS PO PRN (21:52)
[2023-08-12] MEDS: CHLORHEXIDINE GLUCONATE 4% CLEANSER FOR DECOLONIZATION TP SCH (21:53)
[2023-08-13 00:27] LABS: URINE APPEARANCE CLEAR; URINE BILIRUBIN NEGATIVE (NEGATIVE); URINE COLOR YELLOW; URINE GLUCOSE (UA) 2+ (NEGATIVE); URINE KETONE NEGATIVE (NEGATIVE); URINE LEUK ESTERASE NEGATIVE (NEGATIVE); URINE NITRITE NEGATIVE (NEGATIVE); URINE PROTEIN NEGATIVE (NEGATIVE); URINE UROBILINOGEN 0.2 mg/dL (0.2-1.0)
[2023-08-13] MEDS: INSULIN SLIDING SCALE (NOVOLOG) 1 VIAL SQ SCH ×4 (06:37→21:43)
[2023-08-13] MEDS: INSULIN (NOVOLOG) ASPART 100 UNITS/ML 10ML VIAL SQ SCH ×3 (06:38→16:59)
[2023-08-13 07:52] LABS: INR 0.94 (0.83-1.09); PROTHROMBIN TIME (PATIENT) 10.9 SEC (9.7-13.0)
[2023-08-13 07:53] LABS: POTASSIUM 3.7 mmol/L (3.5-5.1)
[2023-08-13 07:55] LABS: ACTIVATED PTT 43.7 SECONDS (25.2-36.5)
[2023-08-13 07:58] LABS: BLOOD UREA NITROGEN 51.8 mg/dL (7-18); CALCIUM 8.8 mg/dL (8.5-10.1)
[2023-08-13 07:59] LABS: ALBUMIN 2.3 g/dl (3.4-5.0); MAGNESIUM 1.8 mg/dL (1.8-2.4)
[2023-08-13 08:01] LABS: CREATININE 1.5 mg/dL (0.55-1.3); PHOSPHOROUS 2.5 mg/dL (2.5-4.9)
[2023-08-13 08:02] LABS: BILIRUBIN,TOTAL 0.4 mg/dL (0.2-1); TOT PROT 5.9 g/dl (6.4-8.2)
[2023-08-13] MEDS: HEPARIN NA (PORCINE) 5,000 UNITS/ML 1ML VIAL IVPUSH PRN (08:13)
[2023-08-13 08:18] LABS: BASO % 0.2 % (0-2.0); EOS % 1.4 % (0-4.5); HEMOGLOBIN 10.6 GM/dL (10.7-15.3); LYMPH % 9.7 % (8-40); MCH 30.4 pg (25.7-33.7); MCHC 33.1 g/dl (32.0-36.0); MEAN CELL VOLUME 91.7 fl (80-96); MEAN PLT VOLUME 8.8 fl (7.5-11.1); MONO % 8.1 % (3.8-10.2); NEUT % 80.6 % (42.8-82.8); PLATELET COUNT 341 10^3/uL (134-434); RBC 3.49 M/mm3 (3.60-5.2); RDW 14.6 % (11.6-15.6); WHITE BLOOD COUNT 11.7 K/mm3 (4.0-10.0)
[2023-08-13] MEDS: ALBUTEROL SO4 2.5/IPRATROPIUM 0.5 INH SOL 3 ML VIAL.NEB. NEB SCH ×3 (08:45→21:06)
[2023-08-13] MEDS: NIFEdipine E.R 60 MG TABLET PO SCH (09:32)
[2023-08-13] MEDS: MUPIROCIN 2% TOPICAL OINTMENT FOR DECOLONIZATION NS SCH ×2 (09:32→21:00)
[2023-08-13] MEDS: FERROUS SO4 325 MG TABLET (FP) PO SCH (09:32)
[2023-08-13] MEDS: HYDROmorphone HCl 2 MG/ML VIAL IVPUSH PRN ×3 (09:33→20:12)
[2023-08-13] MEDS: DOXYCYCLINE HYCLATE 100 MG CAPSULE PO SCH ×2 (09:33→17:16)
[2023-08-13 16:43] LABS: INR 0.97 (0.83-1.09); PROTHROMBIN TIME (PATIENT) 11.3 SEC (9.7-13.0)
[2023-08-13 16:46] LABS: ACTIVATED PTT 52.2 SECONDS (25.2-36.5)
[2023-08-13] MEDS: HEPARIN - 25,000 UNIT in SODIUM CHLORIDE 495 ML IV SCH (16:49)
[2023-08-13] MEDS ORDERED: INSULIN (NOVOLOG) ASPART 100 UNITS/ML 10ML VIAL ONE (17:45)
[2023-08-13] MEDS: FAMOTIDINE 20 MG TABLET PO SCH (21:00)
[2023-08-13] MEDS: ATORVASTATIN CA 80 MG TABLET (FP) PO SCH (21:00)
[2023-08-13] MEDS: CHLORHEXIDINE GLUCONATE 4% CLEANSER FOR DECOLONIZATION TP SCH (21:00)
[2023-08-13] MEDS: MELATONIN 5 MG TABLETS PO PRN (21:42)
[2023-08-14] MEDS: HYDROmorphone HCl 2 MG/ML VIAL IVPUSH PRN ×5 (01:32→21:49)
[2023-08-14] MEDS: HEPARIN - 25,000 UNIT in SODIUM CHLORIDE 495 ML IV SCH ×2 (01:33→22:44)
[2023-08-14 06:57] LABS: HEMATOCRIT 32.3 % (32.4-45.2); HEMOGLOBIN 10.6 GM/dL (10.7-15.3); MCH 30.1 pg (25.7-33.7); MCHC 32.9 g/dl (32.0-36.0); MEAN CELL VOLUME 91.7 fl (80-96); MEAN PLT VOLUME 8.5 fl (7.5-11.1); PLATELET COUNT 338 10^3/uL (134-434); RBC 3.53 M/mm3 (3.60-5.2); RDW 14.7 % (11.6-15.6)
[2023-08-14] MEDS: INSULIN SLIDING SCALE (NOVOLOG) 1 VIAL SQ SCH ×4 (07:06→22:00)
[2023-08-14] MEDS: INSULIN (NOVOLOG) ASPART 100 UNITS/ML 10ML VIAL SQ SCH ×3 (07:07→16:55)
[2023-08-14 07:16] LABS: POTASSIUM 3.8 mmol/L (3.5-5.1)
[2023-08-14 07:20] LABS: ALBUMIN 2.1 g/dl (3.4-5.0); BLOOD UREA NITROGEN 43.4 mg/dL (7-18); CALCIUM 8.8 mg/dL (8.5-10.1)
[2023-08-14 07:23] LABS: CREATININE 1.2 mg/dL (0.55-1.3)
[2023-08-14 07:25] LABS: BILIRUBIN,TOTAL 0.5 mg/dL (0.2-1)
[2023-08-14] MEDS: ALBUTEROL SO4 2.5/IPRATROPIUM 0.5 INH SOL 3 ML VIAL.NEB. NEB SCH ×3 (07:45→20:22)
[2023-08-14] MEDS: MUPIROCIN 2% TOPICAL OINTMENT FOR DECOLONIZATION NS SCH (10:12)
[2023-08-14] MEDS: NIFEdipine E.R 60 MG TABLET PO SCH (10:12)
[2023-08-14] MEDS: DOXYCYCLINE HYCLATE 100 MG CAPSULE PO SCH ×2 (10:12→18:26)
[2023-08-14] MEDS: FERROUS SO4 325 MG TABLET (FP) PO SCH (10:12)
[2023-08-14] MEDS ORDERED: oxyCODONE HCL 5 MG TABLET PO PRN (12:45)
[2023-08-14] MEDS: MELATONIN 5 MG TABLETS PO PRN (21:50)
[2023-08-14] MEDS: ATORVASTATIN CA 80 MG TABLET (FP) PO SCH (21:50)
[2023-08-14] MEDS: FAMOTIDINE 20 MG TABLET PO SCH (21:51)
[2023-08-14] MEDS ORDERED: HYDROmorphone HCl 2 MG/ML VIAL IVPUSH PRN (22:40)
[2023-08-14] MEDS ORDERED: ALBUTEROL SO4 0.083% IH SOL 2.5 MG/3 ML VIAL.NEB. NEB PRN (22:40)
[2023-08-14] MEDS ORDERED: ONDANSETRON 4 MG/2 ML VIAL IVPUSH PRN (22:40)
[2023-08-14] MEDS ORDERED: MELATONIN 5 MG TABLETS PO PRN (22:40)
[2023-08-14] MEDS: PATIENT'S OWN MEDICATION (NON-FORMULARY) (Dapagliflozin Propanediol 10 MG) PO SCH (22:44)
[2023-08-14] MEDS: CHLORHEXIDINE GLUCONATE 4% CLEANSER FOR DECOLONIZATION TP SCH (22:45)
[2023-08-15] MEDS: INSULIN SLIDING SCALE (NOVOLOG) 1 VIAL SQ SCH ×4 (06:21→22:20)
[2023-08-15] MEDS: INSULIN (NOVOLOG) ASPART 100 UNITS/ML 10ML VIAL SQ SCH ×4 (06:21→17:45)
[2023-08-15] MEDS: PATIENT'S OWN MEDICATION (NON-FORMULARY) (Dapagliflozin Propanediol 10 MG) PO SCH (06:48)
[2023-08-15 07:45] LABS: HEMATOCRIT 34.1 % (32.4-45.2); HEMOGLOBIN 10.7 GM/dL (10.7-15.3); MCH 28.8 pg (25.7-33.7); MCHC 31.3 g/dl (32.0-36.0); PLATELET COUNT 340 10^3/uL (134-434); RBC 3.71 M/mm3 (3.60-5.2); RDW 14.7 % (11.6-15.6); WHITE BLOOD COUNT 13.1 K/mm3 (4.0-10.0)
[2023-08-15] MEDS ORDERED: ALBUTEROL SO4 2.5/IPRATROPIUM 0.5 INH SOL 3 ML VIAL.NEB. NEB SCH (08:00)
[2023-08-15] MEDS ORDERED: NIFEdipine E.R 60 MG TABLET PO SCH (10:00)
[2023-08-15] MEDS ORDERED: PATIENT'S OWN MEDICATION (NON-FORMULARY) (Dapagliflozin Propanediol 10 MG) PO SCH (10:00)
[2023-08-15] MEDS ORDERED: FERROUS SO4 325 MG TABLET (FP) PO SCH (10:00)
[2023-08-15] MEDS ORDERED: NEBIVOLOL 5 MG TABLET (FP) PO SCH (10:00)
[2023-08-15] MEDS ORDERED: DOXYCYCLINE HYCLATE 100 MG CAPSULE PO SCH (10:00)
[2023-08-15] MEDS ORDERED: LIDOCAINE HCL 1%, 10 MG/ML (20ML VIAL) ONE (11:39)
[2023-08-15] MEDS ORDERED: FENTANYL CITRATE/PF 50 MCG/ML VIAL ONE ×5 (11:55→14:32)
[2023-08-15] MEDS ORDERED: LIDOCAINE HCL/PF 2% SDV 5ML VIAL ONE (11:55)
[2023-08-15] MEDS ORDERED: ROCURONIUM BROMIDE 50 MG/5 ML SYRINGE ONE (11:55)
[2023-08-15] MEDS ORDERED: PROPOFOL 20 ML ONE (11:55)
[2023-08-15] MEDS ORDERED: MIDAZOLAM HCL 2 MG/2 ML SINGLE DOSE VIAL ONE ×2 (11:56→12:16)
[2023-08-15] MEDS ORDERED: BUPIVACAINE HCL/PF 0.5% (5MG/ML) 10 ML VIAL ONE (12:11)
[2023-08-15] MEDS ORDERED: ONDANSETRON 4 MG/2 ML VIAL ONE (12:39)
[2023-08-15] MEDS ORDERED: ALBUTEROL SO4 0.083% IH SOL 2.5 MG/3 ML VIAL.NEB. NEB PRN (13:34)
[2023-08-15] MEDS ORDERED: oxyCODONE HCL 5 MG TABLET PO PRN (13:34)
[2023-08-15] MEDS ORDERED: ONDANSETRON 4 MG/2 ML VIAL IVPUSH PRN (13:34)
[2023-08-15] MEDS ORDERED: MELATONIN 5 MG TABLETS PO PRN (13:34)
[2023-08-15] MEDS: ALBUTEROL SO4 2.5/IPRATROPIUM 0.5 INH SOL 3 ML VIAL.NEB. NEB SCH ×2 (14:45→21:13)
[2023-08-15] MEDS: HYDROmorphone HCl 2 MG/ML VIAL IVPUSH PRN ×2 (15:40→20:19)
[2023-08-15] MEDS: DOXYCYCLINE HYCLATE 100 MG CAPSULE PO SCH (17:13)
[2023-08-15] MEDS ORDERED: ATORVASTATIN CA 80 MG TABLET (FP) PO SCH (22:00)
[2023-08-15] MEDS ORDERED: FAMOTIDINE 20 MG TABLET PO SCH (22:00)
[2023-08-15] MEDS ORDERED: CHLORHEXIDINE GLUCONATE 4% CLEANSER FOR DECOLONIZATION TP SCH (22:00)
[2023-08-15] MEDS: ATORVASTATIN CA 80 MG TABLET (FP) PO SCH (22:19)
[2023-08-15] MEDS: FAMOTIDINE 20 MG TABLET PO SCH (22:19)
[2023-08-16] MEDS: HYDROmorphone HCl 2 MG/ML VIAL IVPUSH PRN ×2 (02:18→09:02)
[2023-08-16] MEDS: INSULIN SLIDING SCALE (NOVOLOG) 1 VIAL SQ SCH ×4 (06:34→23:44)
[2023-08-16] MEDS: INSULIN (NOVOLOG) ASPART 100 UNITS/ML 10ML VIAL SQ SCH ×3 (08:39→18:12)
[2023-08-16] MEDS: ALBUTEROL SO4 2.5/IPRATROPIUM 0.5 INH SOL 3 ML VIAL.NEB. NEB SCH ×3 (08:53→20:30)
[2023-08-16] MEDS: NEBIVOLOL 5 MG TABLET (FP) PO SCH (09:05)
[2023-08-16] MEDS: DOXYCYCLINE HYCLATE 100 MG CAPSULE PO SCH ×2 (09:05→17:07)
[2023-08-16] MEDS: FERROUS SO4 325 MG TABLET (FP) PO SCH (09:05)
[2023-08-16 09:14] LABS: HEMATOCRIT 31.6 % (32.4-45.2); MCH 29.4 pg (25.7-33.7); MCHC 31.7 g/dl (32.0-36.0); MEAN CELL VOLUME 92.9 fl (80-96); PLATELET COUNT 350 10^3/uL (134-434); RBC 3.41 M/mm3 (3.60-5.2); RDW 14.6 % (11.6-15.6); WHITE BLOOD COUNT 16.7 K/mm3 (4.0-10.0)
[2023-08-16 09:32] LABS: POTASSIUM 3.4 mmol/L (3.5-5.1)
[2023-08-16 09:54] LABS: ALBUMIN 2.2 g/dl (3.4-5.0); BLOOD UREA NITROGEN 31.3 mg/dL (7-18); CALCIUM 9.4 mg/dL (8.5-10.1)
[2023-08-16 09:57] LABS: CREATININE 1.3 mg/dL (0.55-1.3)
[2023-08-16 09:59] LABS: BILIRUBIN,TOTAL 0.4 mg/dL (0.2-1); TOT PROT 6.1 g/dl (6.4-8.2)
[2023-08-16] MEDS ORDERED: NIFEdipine E.R 60 MG TABLET PO SCH (10:00)
[2023-08-16] MEDS ORDERED: PATIENT'S OWN MEDICATION (NON-FORMULARY) (Dapagliflozin Propanediol 10 MG) PO SCH (10:00)
[2023-08-16 10:12] LABS: ANISOCYTOSIS 0; MACROCYTOSIS 0
[2023-08-16] MEDS ORDERED: BISACODYL 5 MG TABLET.DR (FP) PO ONE (10:33)
[2023-08-16] MEDS ORDERED: POTASSIUM CHLORIDE ORAL LIQUID 20 MEQ/15 ML PO ONE (10:45)
[2023-08-16] MEDS: POLYETHYLENE GLYCOL (HEALTHYLAX) 3350 17 GM PACKET PO SCH ×2 (12:00→23:33)
[2023-08-16] MEDS ORDERED: FUROSEMIDE 40 MG/4 ML INJECTABLE VIAL IVPUSH ONE (14:03)
[2023-08-16] MEDS ORDERED: CYANOCOBALAMIN (VITAMIN B-12) 1000 MCG/1 ML VIAL IM ONE (15:35)
[2023-08-16] MEDS: FAMOTIDINE 20 MG TABLET PO SCH (23:33)
[2023-08-16] MEDS: ACETAMINOPHEN 325 MG TABLET (FP) PO PRN (23:34)
[2023-08-16] MEDS: ATORVASTATIN CA 80 MG TABLET (FP) PO SCH (23:34)
[2023-08-17] MEDS ORDERED: INSULIN (LEVEMIR) 100 UNITS/ML UNITS SQ ONE (03:09)
[2023-08-17] MEDS: INSULIN (NOVOLOG) ASPART 100 UNITS/ML 10ML VIAL SQ SCH ×3 (06:30→16:48)
[2023-08-17] MEDS: INSULIN (LEVEMIR) 100 UNITS/ML UNITS SQ SCH (06:30)
[2023-08-17] MEDS: INSULIN SLIDING SCALE (NOVOLOG) 1 VIAL SQ SCH ×4 (06:34→22:54)
[2023-08-17] MEDS: ACETAMINOPHEN 325 MG TABLET (FP) PO PRN ×2 (06:51→13:01)
[2023-08-17 07:32] LABS: BASO % 0.5 % (0-2.0); EOS % 0.1 % (0-4.5); HEMATOCRIT 29.6 % (32.4-45.2); HEMOGLOBIN 9.5 GM/dL (10.7-15.3); LYMPH % 3.6 % (8-40); MCH 29.5 pg (25.7-33.7); MCHC 31.9 g/dl (32.0-36.0); MEAN CELL VOLUME 92.5 fl (80-96); MEAN PLT VOLUME 8.6 fl (7.5-11.1); MONO % 6.9 % (3.8-10.2); NEUT % 88.9 % (42.8-82.8); PLATELET COUNT 328 10^3/uL (134-434); RDW 14.7 % (11.6-15.6); WHITE BLOOD COUNT 19.8 K/mm3 (4.0-10.0)
[2023-08-17 07:53] LABS: POTASSIUM 3.8 mmol/L (3.5-5.1)
[2023-08-17 08:00] LABS: CALCIUM 9.1 mg/dL (8.5-10.1)
[2023-08-17 08:02] LABS: BLOOD UREA NITROGEN 28.7 mg/dL (7-18)
[2023-08-17 08:04] LABS: CREATININE 1.2 mg/dL (0.55-1.3)
[2023-08-17 08:06] LABS: BILIRUBIN,TOTAL 0.6 mg/dL (0.2-1); TOT PROT 5.9 g/dl (6.4-8.2)
[2023-08-17] MEDS: ALBUTEROL SO4 2.5/IPRATROPIUM 0.5 INH SOL 3 ML VIAL.NEB. NEB SCH ×3 (08:30→20:46)
[2023-08-17] MEDS: POLYETHYLENE GLYCOL (HEALTHYLAX) 3350 17 GM PACKET PO SCH ×2 (09:22→22:15)
[2023-08-17] MEDS: FERROUS SO4 325 MG TABLET (FP) PO SCH (09:23)
[2023-08-17] MEDS: FUROSEMIDE 20 MG TABLET (FP) PO SCH (09:23)
[2023-08-17] MEDS: NEBIVOLOL 5 MG TABLET (FP) PO SCH (09:23)
[2023-08-17] MEDS: ASPIRIN COATED 81 MG TABLET.EC PO SCH (09:23)
[2023-08-17] MEDS: DOXYCYCLINE HYCLATE 100 MG CAPSULE PO SCH ×2 (09:23→17:52)
[2023-08-17] MEDS: NIFEdipine E.R. 90 MG TABLET PO SCH (09:28)
[2023-08-17] MEDS: HYDROmorphone HCl 2 MG/ML VIAL IVPUSH PRN ×2 (09:29→22:15)
[2023-08-17] MEDS ORDERED: EMPAGLIFLOZIN (JARDIANCE) 10 MG TABLET PO SCH (10:00)
[2023-08-17] MEDS ORDERED: ONDANSETRON 4 MG/2 ML VIAL IVPUSH PRN (10:41)
[2023-08-17] MEDS ORDERED: ALBUTEROL SO4 0.083% IH SOL 2.5 MG/3 ML VIAL.NEB. NEB PRN (10:41)
[2023-08-17] MEDS: FAMOTIDINE 20 MG TABLET PO SCH (22:15)
[2023-08-17] MEDS: MELATONIN 5 MG TABLETS PO PRN (22:15)
[2023-08-17] MEDS: ATORVASTATIN CA 80 MG TABLET (FP) PO SCH (22:15)
[2023-08-18] MEDS: HYDROmorphone HCl 2 MG/ML VIAL IVPUSH PRN (05:52)
[2023-08-18] MEDS: INSULIN SLIDING SCALE (NOVOLOG) 1 VIAL SQ SCH ×4 (06:02→22:01)
[2023-08-18] MEDS: INSULIN (LEVEMIR) 100 UNITS/ML UNITS SQ SCH (06:02)
[2023-08-18] MEDS: ALBUTEROL SO4 2.5/IPRATROPIUM 0.5 INH SOL 3 ML VIAL.NEB. NEB SCH ×3 (07:20→19:52)
[2023-08-18] MEDS: DOXYCYCLINE HYCLATE 100 MG CAPSULE PO SCH ×2 (09:09→17:05)
[2023-08-18] MEDS: POLYETHYLENE GLYCOL (HEALTHYLAX) 3350 17 GM PACKET PO SCH ×2 (09:09→22:02)
[2023-08-18] MEDS: FUROSEMIDE 20 MG TABLET (FP) PO SCH (09:09)
[2023-08-18] MEDS: NIFEdipine E.R. 90 MG TABLET PO SCH (09:09)
[2023-08-18] MEDS: NEBIVOLOL 5 MG TABLET (FP) PO SCH (09:10)
[2023-08-18] MEDS: EMPAGLIFLOZIN (JARDIANCE) 10 MG TABLET PO SCH (09:10)
[2023-08-18] MEDS: ASPIRIN COATED 81 MG TABLET.EC PO SCH (09:10)
[2023-08-18] MEDS: FERROUS SO4 325 MG TABLET (FP) PO SCH (09:31)
[2023-08-18] MEDS: INSULIN (NOVOLOG) ASPART 100 UNITS/ML 10ML VIAL SQ SCH ×2 (10:46→16:42)
[2023-08-18] MEDS: ACETAMINOPHEN 325 MG TABLET (FP) PO PRN (12:38)
[2023-08-18] MEDS: ACETAMINOPHEN 1000 MG/100 ML BAG IVPB PRN ×2 (14:50→22:14)
[2023-08-18] MEDS: ATORVASTATIN CA 80 MG TABLET (FP) PO SCH (22:02)
[2023-08-18] MEDS: FAMOTIDINE 20 MG TABLET PO SCH (22:02)
[2023-08-18] MEDS: MELATONIN 5 MG TABLETS PO PRN (22:14)
[2023-08-19] MEDS: ACETAMINOPHEN 1000 MG/100 ML BAG IVPB PRN ×2 (04:33→10:13)
[2023-08-19] MEDS: INSULIN (LEVEMIR) 100 UNITS/ML UNITS SQ SCH (06:52)
[2023-08-19] MEDS: INSULIN (NOVOLOG) ASPART 100 UNITS/ML 10ML VIAL SQ SCH ×3 (06:53→16:18)
[2023-08-19] MEDS: INSULIN SLIDING SCALE (NOVOLOG) 1 VIAL SQ SCH ×4 (06:54→22:04)
[2023-08-19] MEDS: ALBUTEROL SO4 2.5/IPRATROPIUM 0.5 INH SOL 3 ML VIAL.NEB. NEB SCH ×3 (08:10→19:55)
[2023-08-19 08:51] LABS: HEMATOCRIT 26.5 % (32.4-45.2); HEMOGLOBIN 8.7 GM/dL (10.7-15.3); MCH 29.7 pg (25.7-33.7); MCHC 32.9 g/dl (32.0-36.0); MEAN CELL VOLUME 90.3 fl (80-96); MEAN PLT VOLUME 8.4 fl (7.5-11.1); PLATELET COUNT 333 10^3/uL (134-434); RBC 2.93 M/mm3 (3.60-5.2); RDW 14.8 % (11.6-15.6)
[2023-08-19 09:06] LABS: POTASSIUM 3.3 mmol/L (3.5-5.1)
[2023-08-19 09:08] LABS: ALBUMIN 1.8 g/dl (3.4-5.0); CALCIUM 8.7 mg/dL (8.5-10.1)
[2023-08-19 09:11] LABS: CREATININE 1.4 mg/dL (0.55-1.3)
[2023-08-19 09:13] LABS: BILIRUBIN,TOTAL 0.4 mg/dL (0.2-1); TOT PROT 5.6 g/dl (6.4-8.2)
[2023-08-19] MEDS: FERROUS SO4 325 MG TABLET (FP) PO SCH (09:58)
[2023-08-19] MEDS: DOXYCYCLINE HYCLATE 100 MG CAPSULE PO SCH ×2 (09:58→17:28)
[2023-08-19] MEDS: NEBIVOLOL 5 MG TABLET (FP) PO SCH (09:58)
[2023-08-19] MEDS: FUROSEMIDE 20 MG TABLET (FP) PO SCH (09:58)
[2023-08-19] MEDS: NIFEdipine E.R. 90 MG TABLET PO SCH (09:58)
[2023-08-19] MEDS: POLYETHYLENE GLYCOL (HEALTHYLAX) 3350 17 GM PACKET PO SCH ×2 (09:58→22:04)
[2023-08-19] MEDS: EMPAGLIFLOZIN (JARDIANCE) 10 MG TABLET PO SCH (09:58)
[2023-08-19] MEDS: ASPIRIN COATED 81 MG TABLET.EC PO SCH (09:58)
[2023-08-19] MEDS: traMADol HCL 50 MG TABLET PO SCH ×2 (13:02→17:27)
[2023-08-19] MEDS ORDERED: POTASSIUM CHLORIDE ORAL LIQUID 20 MEQ/15 ML PO ONE (14:30)
[2023-08-19 16:00] VITALS: RESP 18
[2023-08-19] MEDS: ATORVASTATIN CA 80 MG TABLET (FP) PO SCH (22:04)
[2023-08-19] MEDS: FAMOTIDINE 20 MG TABLET PO SCH (22:04)
[2023-08-19] MEDS: MELATONIN 5 MG TABLETS PO PRN (22:08)
[2023-08-20] MEDS: traMADol HCL 50 MG TABLET PO SCH ×3 (00:55→13:10)
[2023-08-20] MEDS: INSULIN (LEVEMIR) 100 UNITS/ML UNITS SQ SCH (06:25)
[2023-08-20] MEDS: INSULIN (NOVOLOG) ASPART 100 UNITS/ML 10ML VIAL SQ SCH ×2 (06:28→11:12)
[2023-08-20] MEDS: INSULIN SLIDING SCALE (NOVOLOG) 1 VIAL SQ SCH ×2 (06:28→11:10)
[2023-08-20] MEDS: ALBUTEROL SO4 2.5/IPRATROPIUM 0.5 INH SOL 3 ML VIAL.NEB. NEB SCH (08:15)
[2023-08-20] MEDS: EMPAGLIFLOZIN (JARDIANCE) 10 MG TABLET PO SCH (10:08)
[2023-08-20] MEDS: FERROUS SO4 325 MG TABLET (FP) PO SCH (10:08)
[2023-08-20] MEDS: DOXYCYCLINE HYCLATE 100 MG CAPSULE PO SCH (10:08)
[2023-08-20] MEDS: FUROSEMIDE 20 MG TABLET (FP) PO SCH (10:08)
[2023-08-20] MEDS: POLYETHYLENE GLYCOL (HEALTHYLAX) 3350 17 GM PACKET PO SCH (10:08)
[2023-08-20] MEDS: ASPIRIN COATED 81 MG TABLET.EC PO SCH (10:08)
[2023-08-20] MEDS: NIFEdipine E.R. 90 MG TABLET PO SCH (10:08)
[2023-08-20] MEDS: NEBIVOLOL 5 MG TABLET (FP) PO SCH (10:29)
[2023-08-20] MEDS: ACETAMINOPHEN 325 MG TABLET (FP) PO PRN (10:29)
[2023-08-20 11:38] LABS: HEMATOCRIT 26.7 % (32.4-45.2); HEMOGLOBIN 8.8 GM/dL (10.7-15.3); MCH 29.8 pg (25.7-33.7); MCHC 32.9 g/dl (32.0-36.0); MEAN CELL VOLUME 90.7 fl (80-96); MEAN PLT VOLUME 7.9 fl (7.5-11.1); PLATELET COUNT 391 10^3/uL (134-434); RBC 2.94 M/mm3 (3.60-5.2); RDW 14.5 % (11.6-15.6); WHITE BLOOD COUNT 23.4 K/mm3 (4.0-10.0)
[2023-08-20 11:51] VITALS: BP 160/67; TEMP 99.1
[2023-08-20 11:52] VITALS: PULSE 88
[2023-08-20 12:10] LABS: ANISOCYTOSIS 1+; MACROCYTOSIS 0
== END 2023-08-20 16:05 | disposition home health service (06) | DRG 239 ==
LOC: J2C 04:26 → EDSTATUS 13:00 → JICU 20:38 → J4S 08-14 20:11 → J6S 08-17 10:39
PROVIDERS: ADMIT Surgery Vascular Surgery; ATTEND Surgery Vascular Surgery
PROC: 04CP0ZZ Extirpation of Matter from Right Anterior Tibial Artery, Open Approach (ICD-10-PCS; 2023-08-07)
PROC: 04U Lower Arteries, Supplement (ICD-10-PCS; 2023-08-07)
PROC: 04CT0ZZ Extirpation of Matter from Right Peroneal Artery, Open Approach (ICD-10-PCS; principal; 2023-08-07 13:00)
PROC: 061M09Y Bypass Right Femoral Vein to Lower Vein with Autologous Venous Tissue, Open Approach (ICD-10-PCS; 2023-08-09)
PROC: 0YP90JZ Removal of Synthetic Substitute from Right Lower Extremity, Open Approach (ICD-10-PCS; 2023-08-09)
PROC: B40FYZZ Plain Radiography of Right Lower Extremity Arteries using Other Contrast (ICD-10-PCS; 2023-08-09)
PROC: 30233N1 Transfusion of Nonautologous Red Blood Cells into Peripheral Vein, Percutaneous Approach (ICD-10-PCS; 2023-08-09)
PROC: 0Y6F0ZZ Detachment at Right Knee Region, Open Approach (ICD-10-PCS; 2023-08-15)
DX: I70.59 Other atherosclerosis of nonautologous biological bypass graft(s) of the extremities (principal); I50.33 Acute on chronic diastolic (congestive) heart failure; T82.868A Thrombosis due to vascular prosthetic devices, implants and grafts, initial encounter; E11.52 Type 2 diabetes mellitus with diabetic peripheral angiopathy with gangrene; I13.0 Hypertensive heart and chronic kidney disease with heart failure and stage 1 through stage 4 chronic kidney disease, or unspecified chronic kidney disease; J81.1 Chronic pulmonary edema; E78.5 Hyperlipidemia, unspecified; E11.22 Type 2 diabetes mellitus with diabetic chronic kidney disease; N18.9 Chronic kidney disease, unspecified; I50.89 Other heart failure; Z89.612 Acquired absence of left leg above knee; D64.9 Anemia, unspecified; E11.65 Type 2 diabetes mellitus with hyperglycemia; R53.1 Weakness; E11.40 Type 2 diabetes mellitus with diabetic neuropathy, unspecified; Y83.8 Other surgical procedures as the cause of abnormal reaction of the patient, or of later complication, without mention of misadventure at the time of the procedure; Z89.421 Acquired absence of other right toe(s)
CPT/HCPCS: 36415; 36430; 71045-TC-FY; 80048; 80053; 81003; 82010; 82570; 82962; 83036; 83540; 83550; 83735; 83880; 84100; 84300; 85025; 85027; 85610; 85730; 86850; 86900; 86901; 86922; 87040; 87635; 88307-TC; 88311-TC; 93005; 93010; 93306-TC; 94640; 94760; 94761; C1757; C1768; J1644; J1756; P9058